=== PATIENT | male | born 1950 | race Caucasian/White ===

== ENCOUNTER → 2019-11-27 | Outpatient (CLI) | payer MEDICARE ==
--- NOTE | 2019-11-27 09:47 | Diagnostic Imaging Report ---
INDICATION: Left shoulder pain for 4 months. TIME OF EXAMINATION: 8:50 AM. TECHNIQUE: Multiple views of the left shoulder were obtained. FINDINGS: The glenohumeral and acromioclavicular alignment is normal. The acromiohumeral space is normal. No fracture or dislocation is seen. IMPRESSION: No acute bony abnormality is detected. Dictated by: Dictated on workstation # [id number]
== END ==
LOC: RAD FS 08:41
PROVIDERS: ATTEND Nurse Practitioner
DX: M25.512 Pain in left shoulder (principal)
CPT/HCPCS: 73030

== ENCOUNTER → 2019-12-06 | Outpatient (CLI) | payer MEDICARE ==
--- NOTE | 2019-12-06 09:29 | Diagnostic Imaging Report ---
EXAMINATION: Magnetic resonance imaging of the left shoulder without contrast. DATE: December 06, 2019. COMPARISON: Left shoulder radiographs November 27, 2019. HISTORY: 69-year-old male, left shoulder pain and difficulties with range of motion. TECHNIQUE: Magnetic Resonance Imaging sequences were performed of the shoulder without contrast. 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 This is seen on series 3 image 4. ROTATOR CUFF, LIGAMENTS, TENDONS, AND MUSCLES: There is supraspinatus tendinopathy fairly focally located within the posterior aspect of the tendon. The infraspinatus and teres minor tendons are intact. The subscapularis tendon is intact. There is normal rotator cuff muscle bulk and signal. LONG HEAD OF BICEPS: The biceps labral attachment and long head of the biceps tendon is intact. The long head of the biceps tendon is normally positioned within the bicipital groove. GLENOHUMERAL JOINT: The humeral head is well positioned relative to the glenoid. The labrum is grossly intact. There is no identified paralabral cyst. The articular cartilage is grossly intact. There is no joint effusion. ACROMIOCLAVICULAR JOINT: The acromioclavicular joint is normally aligned. The coracoclavicular and coracoacromial ligaments are intact. There are very mild acromioclavicular degenerative changes without undersurface osteophyte. BONE: The bones all have normal configuration. The bone marrow signal is within normal limits. Specifically, negative for fracture, osteomyelitis, osteonecrosis, or marrow replacing process. BURSAE AND SOFT TISSUES: The bursae and soft tissue surrounding the shoulder are unremarkable. IMPRESSION: 1. Supraspinatus tendinopathy. Negative for full-thickness rotator cuff tendon tear. 2. Very mild acromioclavicular degenerative changes without undersurface osteophyte. 3. Grossly intact labrum and unremarkable additional glenohumeral joint assessment. 4. No acute fracture, bone contusion, or evidence of osteonecrosis. 5. Potential 2.0 x 1.3 cm left upper lobe pulmonary nodule which does raise concern for possibility of malignancy. Dedicated CT chest without intravenous contrast is recommended for further assessment. POTENTIAL CRITICAL INCIDENTAL FINDING Report was faxed to office of YADI Limon by emily at 9:30 am. Dictated by: Dictated on workstation # [id number]
== END ==
LOC: RAD 07:52
PROVIDERS: ATTEND Nurse Practitioner
DX: M75.122 Complete rotator cuff tear or rupture of left shoulder, not specified as traumatic (principal); M24.512 Contracture, left shoulder; R91.1 Solitary pulmonary nodule
CPT/HCPCS: 73221

== ENCOUNTER → 2019-12-13 | Outpatient (CLI) | payer MEDICARE ==
[~2019-12-13] MED LIST: CATHETER FLUSH 10 ML SYR IV PRN; HOLD METFORMIN - RECEIVED CONTRAST 20 ML VIAL IV SCH; IOHEXOL 350 MG/ML 100 ML (OMNIPAQUE 350) VIAL IV ONE; NS 100 ML (IVPB) BAG IV ONE
--- NOTE | 2019-12-13 10:27 | Diagnostic Imaging Report ---
PROCEDURE: CT chest with and without contrast. TECHNIQUE: Multiple contiguous axial images were obtained through the chest before and after administration of intravenous contrast. Auto Exposure Controls were utilized during the CT exam to meet ALARA standards for radiation dose reduction. INDICATION: Lung nodule. COMPARISON: No prior studies are available for comparison. FINDINGS: No axillary lymphadenopathy is detected. No mediastinal or hilar lymphadenopathy is detected. No pericardial or pleural fluid is identified. There is an irregular opacity in the left lung apex measuring 15 mm. Tiny subpleural nodule in the lateral aspect of the right middle lobe is noted measuring 4 mm. This is indeterminate. Upper abdomen is unremarkable. IMPRESSION: Spiculated irregular density in the left lung apex, concerning for lung malignancy. No definite thoracic lymphadenopathy is seen. Further evaluation with PET scan would be recommended to evaluate for hypermetabolism. Dictated by: Dictated on workstation # [id number]
== END ==
LOC: RAD FS 08:16
PROVIDERS: ATTEND Family Medicine
DX: R91.1 Solitary pulmonary nodule (principal)
CPT/HCPCS: 71270

== ENCOUNTER 2020-08-05 14:30 | Emergency (ER) | payer MEDICARE ==
[~2020-08-05] VITALS: Ht 177.8 cm; Wt 86.3 kg
--- NOTE | 2020-08-05 14:44 | ED Chest Pain ---
General Stated Complaint: CHEST/ARM PAIN History of Present Illness Date Seen by Provider: Aug 05, 2020 Time Seen by Provider: 14:38 Initial Comments 70 y male presents w episodic CP a few times today with mild exertion. Located center of chest w radiation to R shoulder. Lasted about 10 minutes each time and resolved w rest. Admits to several episodes over the previous 2-3 days as well. On arrival to the ER he has no CP. States in the past he has had a normal stress test, has no Hx of heart problems and has never seen a electrician master. PCP... Dr Cleary. Allergies and Home Medications Allergies Coded Allergies: prochlorperazine (Unverified Adverse Reaction, Unknown, 08/05/20) Home Medications Alprazolam 0.25 Mg Tablet, 0.25 MG PO BID PRN for ANXIETY, (Reported) Amlodipine Besylate 5 Mg Tablet, 5 MG PO DAILY, (Reported) Baclofen 10 Mg Tablet, 10 MG PO for PAIN-MODERATE (5-7), (Reported) Lovastatin 20 Mg Tablet, 20 MG PO DAILY, (Reported) Nitroglycerin 0.4 Mg Tab.subl, 0.4 MG SL UD PRN for CHEST PAIN Prescribed by: LISA ZAPATA on 08/05/20 1513 Patient Home Medication List Home Medication List Reviewed: Yes Review of Systems Review of Systems Constitutional: No dizziness, No fever, No malaise, No weakness Respiratory: Denies Cough, Denies Orthopnea; Shortness of Air (w episodes); Denies SOA at Rest Cardiovascular: See HPI, Chest Pain; Denies Edema, Denies Irregular Heart Rate, Denies Lightheadedness, Denies Palpitations, Denies Syncope Gastrointestinal: Denies Abdominal Pain, Denies Constipated, Denies Diarrhea, Denies Nausea, Denies Poor Appetite, Denies Vomiting Musculoskeletal: back pain (associated w CP episodes) Skin: No change in color, No rash Past Vljyris-Pqvlio-Hlqxiy Hx Past Med/Social Hx: Reviewed Nursing Past Med/Soc Hx Physical Exam Vital Signs Vital Signs - First Documented 08/05/20 14:30 Temp 36.1 Pulse 56 Resp 18 B/P (MAP) 180/79 (112) Pulse Ox 98 O2 Delivery Room Air Capillary Refill : Height, Weight, BMI Height: '" Weight: lbs. oz. kg; BMI Method: General Appearance: No Apparent Distress, WD/WN HEENT: PERRL/EOMI, Normal ENT Inspection Respiratory: Chest Non Tender, Lungs Clear, Normal Breath Sounds, No Accessory Muscle Use, No Respiratory Distress Cardiovascular: Regular Rate, Rhythm, No Edema, Normal Peripheral Pulses Gastrointestinal: Non Tender, Soft Extremity: Normal Capillary Refill, Normal Inspection, No Calf Tenderness Neurologic/Psychiatric: Alert, Oriented x3, No Motor/Sensory Deficits Progress/Results/Core Measures Results/Orders Lab Results Laboratory Tests Test 08/05/20 14:40 Range/Units White Blood Count 7.6 4.3-11.0 10^3/uL Red Blood Count 5.33 4.35-5.85 10^6/uL Hemoglobin 15.0 13.3-17.7 G/DL Hematocrit 43 40-54 % Mean Corpuscular Volume 81 80-99 FL Mean Corpuscular Hemoglobin 28 25-34 PG Mean Corpuscular Hemoglobin Concent 35 32-36 G/DL Red Cell Distribution Width 13.4 10.0-14.5 % Platelet Count 283 130-400 10^3/uL Mean Platelet Volume 9.9 7.4-10.4 FL Neutrophils (%) (Auto) 68 42-75 % Lymphocytes (%) (Auto) 17 12-44 % Monocytes (%) (Auto) 9 0-12 % Eosinophils (%) (Auto) 5 0-10 % Basophils (%) (Auto) 1 0-10 % Neutrophils # (Auto) 5.2 1.8-7.8 X 10^3 Lymphocytes # (Auto) 1.3 1.0-4.0 X 10^3 Monocytes # (Auto) 0.7 0.0-1.0 X 10^3 Eosinophils # (Auto) 0.4 H 0.0-0.3 10^3/uL Basophils # (Auto) 0.1 0.0-0.1 10^3/uL Sodium Level 140 135-145 MMOL/L Potassium Level 4.1 3.6-5.0 MMOL/L Chloride Level 103 98-107 MMOL/L Carbon Dioxide Level 24 21-32 MMOL/L Anion Gap 13 5-14 MMOL/L Blood Urea Nitrogen 23 H 7-18 MG/DL Creatinine 1.19 0.60-1.30 MG/DL Estimat Glomerular Filtration Rate 60 BUN/Creatinine Ratio 19 Glucose Level 123 H 70-105 MG/DL Calcium Level 9.6 8.5-10.1 MG/DL Corrected Calcium 8.5-10.1 MG/DL Total Bilirubin 0.2 0.1-1.0 MG/DL Aspartate Amino Transf (AST/SGOT) 20 5-34 U/L Alanine Aminotransferase (ALT/SGPT) 19 0-55 U/L Alkaline Phosphatase 123 40-136 U/L Troponin I < 0.30 <0.30 NG/ML Total Protein 7.0 6.4-8.2 GM/DL Albumin 4.6 H 3.2-4.5 GM/DL My Orders Orders - ROVENSTINELISA L DO Ed Iv/Invasive Line Start (08/05/20 14:38) Cbc With Automated Diff (08/05/20 14:38) Comprehensive Metabolic Panel (08/05/20 14:38) Troponin I Fs (08/05/20 14:38) Chest 1 View Ap/Pa Only (08/05/20 14:38) Ekg Tracing (08/05/20 14:38) Vital Signs/I&O 08/05/20 08/05/20 14:30 14:30 Temp 36.1 Pulse 56 Resp 18 B/P (MAP) 180/79 (112) Pulse Ox 98 O2 Delivery Room Air Room Air Progress Progress Note : Progress Note Patient episodes over the past several days concerning for angina. EKG without any acute changes and normal troponin as well as chest x-ray. Patient pain free the entire time in this ER. Advise follow-up cardiology, given numbers to call tomorrow. Also given prescription for nitroglycerin and advised take a baby aspirin daily. Instructed on use of nitroglycerin and call 911 for chest pain unrelieved with nitroglycerin. Patient agrees and understands. Initial ECG Impression Time: 14:32 Initial ECG Rate: 60 Initial ECG Rhythm: Normal Sinus Initial ECG Intervals: Normal Initial ECG Impression: Normal, Nonspecific Changes (minimal ST changes- II & III) Initial ECG Comparisson: No Previous ECG Available Diagnostic Imaging Comments INDICATION: Chest pain. TIME OF EXAM 03:05 p.m. COMPARISON: No prior studies are available for comparison. FINDINGS: The heart size is normal. The pulmonary vascularity is unremarkable. The lungs are clear. No infiltrate, effusion or pneumothorax is detected. IMPRESSION: No acute cardiopulmonary process is detected. Dictated on workstation # [id number] Dict: 08/05/20 1522 Trans: 08/05/20 1523 [facility] [id number] Interpreted by: BRENNAN AUGUST MD Electronically signed by: Departure Impression Primary Impression: Chest pain Qualified Codes: R07.9 - Chest pain, unspecified Disposition: HOME, SELF-CARE Condition: Stable Departure-Patient Inst. Referrals: FELISHA CLEARY MD (PCP/Family) Primary Care Physician Monet COTTO MD, BASHAR J MD Patient Instructions: Angina (DC) Add. Discharge Instructions: Call one of the cardiologists listed above tomorrow, to make a follow up appointment in 1 week. You are advised to take a BABY aspirin (81mg) daily unless told otherwise by yo primary doctor or electrician master. Scripts Nitroglycerin (Nitroglycerin) 0.4 Mg Tab.subl 0.4 MG SL UD PRN for CHEST PAIN, #20 TAB Prov: LISA ZAPATA DO 08/05/20 LISA ZAPATA DO Aug 05, 2020 14:44
[2020-08-05 14:53] LABS: WHITE BLOOD COUNT 7.6 10^3/uL (4.3-11.0)
[2020-08-05 14:54] LABS: BASOPHILS # (AUTO) 0.1 10^3/uL (0.0-0.1); BASOPHILS % (AUTO) 1 % (0-10); EOSINOPHILS # (AUTO) 0.4 10^3/uL (0.0-0.3); EOSINOPHILS % (AUTO) 5 % (0-10); HEMATOCRIT 43 % (40-54); LYMPHOCYTES # (AUTO) 1.3 X 10^3 (1.0-4.0); LYMPHOCYTES % (AUTO) 17 % (12-44); MEAN CORPUSCULAR HEMOGLOBIN 28 PG (25-34); MEAN CORPUSCULAR HGB CONC 35 G/DL (32-36); MEAN CORPUSCULAR VOLUME 81 FL (80-99); MEAN PLATELET VOLUME 9.9 FL (7.4-10.4); MONOCYTES # (AUTO) 0.7 X 10^3 (0.0-1.0); MONOCYTES % (AUTO) 9 % (0-12); NEUTROPHILS # (AUTO) 5.2 X 10^3 (1.8-7.8); NEUTROPHILS % (AUTO) 68 % (42-75); PLATELET COUNT 283 10^3/uL (130-400)
[2020-08-05] MEDS ORDERED: ALPR0.254 PO (15:11)
[2020-08-05] MEDS ORDERED: LOVA20TA2 PO (15:11)
[2020-08-05] MEDS ORDERED: TRAM50TA3 (15:11)
[2020-08-05] MEDS ORDERED: BACL10TA PO (15:11)
[2020-08-05] MEDS ORDERED: AMLO5TAB9 PO (15:11)
[2020-08-05] MEDS ORDERED: PROP20TA5 PO (15:11)
[2020-08-05 15:13] LABS: POTASSIUM 4.1 MMOL/L (3.6-5.0); SODIUM 140 MMOL/L (135-145)
[2020-08-05] MEDS ORDERED: NITR0.4T39 SL (15:13)
[2020-08-05 15:14] LABS: ALANINE AMINOTRANSFERASE 19 U/L (0-55); ALBUMIN 4.6 GM/DL (3.2-4.5); ALKALINE PHOSPHATASE 123 U/L (40-136); BILIRUBIN,TOTAL 0.2 MG/DL (0.1-1.0); BUN/CREATININE RATIO 19; CALCIUM 9.6 MG/DL (8.5-10.1); CARBON DIOXIDE 24 MMOL/L (21-32); CHLORIDE 103 MMOL/L (98-107); CREATININE SERUM 1.19 MG/DL (0.60-1.30); GFR ESTIMATED 60; GLUCOSE 123 MG/DL (70-105)
--- NOTE | 2020-08-05 15:24 | Diagnostic Imaging Report ---
INDICATION: Chest pain. TIME OF EXAM 03:05 p.m. COMPARISON: No prior studies are available for comparison. FINDINGS: The heart size is normal. The pulmonary vascularity is unremarkable. The lungs are clear. No infiltrate, effusion or pneumothorax is detected. IMPRESSION: No acute cardiopulmonary process is detected. Dictated by: Dictated on workstation # [id number]
[2020-08-05 15:40] VITALS: BP 125/67
--- NOTE | 2020-08-05 15:40 | NUR ---
Pt discharged to home after review of home instructions verbalized as understood. Instructed on Nitroglycerin SL tablet usage for prn. Pt was referred to call Dr Reina or Dr Marinelli for further follow up and cardiac evaluation. Phone numbers for cardiologists are on discharge instructions.
[2020-08-06] MEDS ORDERED: TICA90TA PO (10:24)
[2020-08-06] MEDS ORDERED: LISI-556 PO (10:24)
[2020-08-06] MEDS ORDERED: ATOR80TA76 PO (10:24)
[2020-08-06] MEDS ORDERED: ASPI-1238 PO (10:24)
== END 2020-08-05 15:40 | disposition home or self-care (01) ==
LOC: EDUNIT# 14:30 → ER FS 14:31
DX: R07.9 Chest pain, unspecified (principal); Z88.8 Allergy status to other drugs, medicaments and biological substances
CPT/HCPCS: 36415; 71045; 80053; 84484; 85025; 93005

== ENCOUNTER 2020-08-05 18:57 | Inpatient (IN) | payer MEDICARE ==
[~2020-08-05] VITALS: Ht 177.6 cm; Wt 85.4 kg
[2020-08-05] VITALS (7 sets, daily range): BP systolic 132–160; BP diastolic 80–89
[~2020-08-05 18:57] MED LIST changes: +ALPR0.254 PO; +AMLO5TAB9 PO; +BACL10TA PO; -CATHETER FLUSH 10 ML SYR IV PRN; -HOLD METFORMIN - RECEIVED CONTRAST 20 ML VIAL IV SCH; -IOHEXOL 350 MG/ML 100 ML (OMNIPAQUE 350) VIAL IV ONE; +LOVA20TA2 PO; +NITR0.4T39 SL; -NS 100 ML (IVPB) BAG IV ONE; +PROP20TA5 PO; +TRAM50TA3
--- NOTE | 2020-08-05 19:00 | NUR ---
Pt ambulatory to ED room 1
--- NOTE | 2020-08-05 19:01 | NUR ---
EKG given to Dr. España
[2020-08-05] MEDS ORDERED: ASPIRIN 81 MG CHEW (CHILDREN'S ASA) ONE (19:06)
[2020-08-05] MEDS ORDERED: TICAGRELOR 90 MG TABLET (BRILINTA) PO ONE ×3 (19:07→19:15)
[2020-08-05] MEDS ORDERED: HEParin 1000 UNIT/ML (10ML VIAL) FOR BOLUS ONE ×2 (19:07→19:38)
--- NOTE | 2020-08-05 19:08 | ED Chest Pain ---
General Stated Complaint: CHEST PAIN Source: patient Exam Limitations: no limitations History of Present Illness Date Seen by Provider: Aug 05, 2020 Time Seen by Provider: 19:03 Initial Comments Patient returns to the ER with chest pain. Seen myself and sent home this afternoon after having 3 days of chest pain intermittently and ruled out for acute coronary syndrome at that time. Patient filled his prescription for nitroglycerin, went home and took a walk to his shop and on the way back had worse chest pain than he had before. States that the pain took him to his knees, he ended up taking 2 nitroglycerin and the pain got better after about an hour. His pain began around 6 p.m. Pain located the center of his chest continued radiation to his right shoulder and arm. Still very stoic regarding his pain. Allergies and Home Medications Allergies Coded Allergies: prochlorperazine (Unverified Adverse Reaction, Unknown, 08/05/20) Home Medications Alprazolam 0.25 Mg Tablet, 0.25 MG PO BID PRN for ANXIETY, (Reported) Amlodipine Besylate 5 Mg Tablet, 5 MG PO DAILY, (Reported) Baclofen 10 Mg Tablet, 10 MG PO for PAIN-MODERATE (5-7), (Reported) Lovastatin 20 Mg Tablet, 20 MG PO DAILY, (Reported) Nitroglycerin 0.4 Mg Tab.subl, 0.4 MG SL UD PRN for CHEST PAIN Prescribed by: LISA ZAPATA on 08/05/20 1513 Patient Home Medication List Home Medication List Reviewed: Yes Review of Systems Review of Systems Constitutional: see HPI; No dizziness, No fever; malaise; No weakness Respiratory: Denies Cough, Denies Shortness of Air Cardiovascular: See HPI, Chest Pain; Denies Edema, Denies Palpitations, Denies Syncope Gastrointestinal: Denies Abdominal Pain, Denies Nausea, Denies Vomiting Musculoskeletal: back pain (upper back) Skin: No change in color, No lesions, No rash Past Gpivhxl-Xgrhsx-Umocrm Hx Past Med/Social Hx: Reviewed Nursing Past Med/Soc Hx Patient Social History Recent Foreign Travel: No Contact w/Someone Who Travel: No Recent Hopitalizations: No Immunizations Up To Date Tetanus Booster (TDap): Unknown Seasonal Allergies Seasonal Allergies: No Past Medical History Surgeries: Yes (Nucleoplasty L5-S1 2001, sq cell cancer L face, adenocarcinoma L upper lobe) Lobectomy, Orthopedic Respiratory: No Cardiac: Yes High Cholesterol, Hypertension Neurological: No Genitourinary: No Gastrointestinal: No Musculoskeletal: No Endocrine: No HEENT: No Cancer: No Psychosocial: Yes Anxiety Integumentary: No Blood Disorders: No Physical Exam Vital Signs Vital Signs - First Documented 08/05/20 08/05/20 19:03 19:12 Temp 36.4 Pulse 47 Resp 18 B/P (MAP) 124/80 (95) Pulse Ox 99 O2 Delivery Room Air Capillary Refill : Height, Weight, BMI Height: '" Weight: lbs. oz. kg; 27.00 BMI Method: General Appearance: No Apparent Distress, WD/WN Neck: Non Tender, Supple Respiratory: Chest Non Tender, Lungs Clear, Normal Breath Sounds Cardiovascular: Regular Rate, Rhythm, No Edema, No Gallop, No JVD Gastrointestinal: Non Tender, Soft Extremity: Normal Capillary Refill, Normal Inspection, Non Tender, No Calf Tenderness Neurologic/Psychiatric: Alert, Oriented x3, No Motor/Sensory Deficits Progress/Results/Core Measures Results/Orders My Orders Orders - LISA ZAPATA DO Aspirin Chewable Tablet (Baby Aspirin Ch (08/05/20 19:15) Ticagrelor Tablet (Brilinta Tablet) (08/05/20 19:15) Heparin (Bolus Per Protocol) (Heparin (B (08/05/20 19:15) Aspirin Chewable Tablet (Baby Aspirin Ch (08/05/20 19:06) Ticagrelor Tablet (Brilinta Tablet) (08/05/20 19:07) Heparin (Bolus Per Protocol) (Heparin (B (08/05/20 19:07) Ticagrelor Tablet (Brilinta Tablet) (08/05/20 19:10) Medications Given in ED Current Medications Medications Dose Ordered Sig/Batool Route Start Time Stop Time Status Last Admin Dose Admin Aspirin 324 mg ONCE ONCE PO 08/05/20 19:15 08/05/20 19:16 DC 08/05/20 19:12 324 MG Ticagrelor 180 mg ONCE ONCE PO 08/05/20 19:15 08/05/20 19:16 DC 08/05/20 19:12 180 MG Vital Signs/I&O 08/05/20 08/05/20 19:03 19:12 Temp 36.4 Pulse 47 Resp 18 B/P (MAP) 124/80 (95) Pulse Ox 99 O2 Delivery Room Air Room Air Initial ECG Impression Time: 19:00 Initial ECG Rate: 52 Initial ECG Rhythm: Normal Sinus Initial ECG Impression: Acute KS Initial ECG Comparisson: Changed (STEMI- II, III aVF) Departure Communication (Admissions) Time/Spoke to Admitting Phy: 19:[address] Reina re STEMI, advised to give ASA, Brilinta and Heparin as well as call clay processing labourer. EMS arrives @ 1917 and out the door by 192 Impression Primary Impression: STEMI (ST elevation myocardial infarction) Qualified Codes: I21.3 - ST elevation (STEMI) myocardial infarction of unspecified site Additional Impression: Chest pain Qualified Codes: I25.9 - Chronic ischemic heart disease, unspecified Disposition: ADMITTED INPATIENT Condition: Stable Admissions Decision to Admit Reason: Admit from ER (General) Decision to Admit/Date: Aug 05, 2020 Time/Decision to Admit Time: 19:10 Departure-Patient Inst. Referrals: FELISHA CLEARY MD (PCP/Family) Primary Care Physician LISA ZAPATA DO Aug 05, 2020 19:08
--- NOTE | 2020-08-05 19:08 | NUR ---
This RN spoke with records supervisor Genesis and requested phlebotomist lab assistant activation.
--- NOTE | 2020-08-05 19:09 | NUR ---
EMS called for STEMI transfer.
--- NOTE | 2020-08-05 19:14 | NUR ---
EMS present in ED for transfer to [place]
[2020-08-05] MEDS ORDERED: HEParin 1000 UNIT/ML (10ML VIAL) FOR BOLUS IV SCH (19:15)
[2020-08-05] MEDS ORDERED: ASPIRIN 81 MG CHEW (CHILDREN'S ASA) PO ONE (19:15)
--- NOTE | 2020-08-05 19:21 | NUR ---
EMS left out the door with pt for emergent transfer to director labor standards in [place]
--- NOTE | 2020-08-05 19:30 | NUR ---
This RN spoke with Pool in ICU and report given.
[2020-08-05] MEDS ORDERED: LIDOCAINE 1% INJ 20 ML 20 ML VIAL ONE (19:38)
[2020-08-05] MEDS ORDERED: HEParin (CATH LAB) 2,000 ML IV ONE (19:38)
[2020-08-05] MEDS ORDERED: NS IV 1000 ML 1,000 ML ONE (19:39)
[2020-08-05] MEDS ORDERED: fentaNYL INJECTION 100 MCG/2 ML AMP ONE (19:42)
[2020-08-05] MEDS ORDERED: MIDAZOLAM 5 MG/5 ML (VERSED) VIAL ONE (19:42)
[2020-08-05] MEDS ORDERED: NITRO DRIP 25000 MCG/D5W 250 ML IV ONE (19:42)
[2020-08-05] MEDS ORDERED: EPTIFIBATIDE BOLUS 20 ML IV ONE (20:15)
--- NOTE | 2020-08-05 20:35 | History & Physicial-Cardiolgy ---
HPI-Cardiology Cardiology Consultation: Date of Consultation 08/05/20 Date of Admission Attending Physician Admitting Physician Raghu Solis MD Consulting Physician Monet COTTO MD HPI: Time Seen by a Provider: 20:35 Chief Complaint: chest pain this is a 70-year-old gentleman with history of HTN. Negative history for DM and active smoking. pertinent family history is unremarkable. He has been having intermittent chest pain for 3 days. However presented with severe chest pain to the [place] ER. Pain got better with nitroglycerin. 45 minutes of continuous chest pain. No exacerbating or relieving factors. 10 out of 10. Not associated with other cardiac complaints. Chest pain improved significantly with IV morphine. Review of Systems-Cardiology Review of Systems Constitutional: As described under HPI; No As described under HPI, No no symptoms reported, No chills, No fever, No lightheadedness Eyes: No As described under HPI, No no symptoms reported, No blindness, No blurred vision, No contact lenses, No drainage, No decreased acuity, No foreign body sensation, No pain, No vision change Ears/Nose/Throat: No As described under HPI, No no symptoms reported, No chronic hearing loss, No ear discharge, No ear pain, No nasal drainage, No ulc erations Respiratory: No no symptoms reported; As described under HPI; No As described under HPI, No cough, No orthopnea, No shortness of breath, No SOB with excertion Cardiovascular: No no symptoms reported; As described under HPI; No As described under HPI; chest pain; No edema, No irregular heart rate, No lightheadedness, No palpitations Gastrointestinal: No no symptoms reported, No As described under HPI, No abdomen distended, No abdominal pain, No blood streaked bowels, No constipation, No diarrhea, No nausea, No vomiting, No stool coloration changes Genitourinary: No As described under HPI, No burning, No dysuria, No discharge, No frequency, No flank pain, No hematuria, No urgency Skin: No rash, No skin related problems, No ulcerations Psychiatric/Neurological: No anxiety, No depression, No seizure, No focal weakness, No syncope Hematologic: No bleeding abnormalities DSG-Kceqtt-Mgiagy Hx Patient Social History Alcohol Use: Denies Use Recreational Drug Use: No Smoking Status: Never a Smoker Recent Foreign Travel: No Recent Infectious Disease Expo: No Hospitalization with Isolation: Denies Immunizations Up To Date Tetanus Booster (TDap): Unknown Past Medical History PMH As described under Assessment. Allergies and Home Medications Allergies Coded Allergies: prochlorperazine (Unverified Adverse Reaction, Unknown, 08/05/20) Home Medications Alprazolam 0.25 Mg Tablet, 0.25 MG PO BID PRN for ANXIETY, (Reported) Amlodipine Besylate 5 Mg Tablet, 5 MG PO DAILY, (Reported) Baclofen 10 Mg Tablet, 10 MG PO for PAIN-MODERATE (5-7), (Reported) Lovastatin 20 Mg Tablet, 20 MG PO DAILY, (Reported) Nitroglycerin 0.4 Mg Tab.subl, 0.4 MG SL UD PRN for CHEST PAIN Prescribed by: LISA ZAPATA on 08/05/20 9720 Patient Home Medication List Home Medication List Reviewed: Yes Physical Exam-Cardiology Physical Exam Vital Signs/I&O 08/05/20 08/05/20 08/05/20 19:03 19:12 19:21 Temp 36.4 36.4 Pulse 47 75 Resp 18 16 B/P (MAP) 124/80 (95) 119/42 (95) Pulse Ox 99 99 O2 Delivery Room Air Room Air Capillary Refill : Less Than 3 Seconds Constitutional: appears stated age; No apparent distress; well-developed, well- nourished HEENT: PERRL; No discharge; hearing is well preserved, oral hygience is good; No ulceration, No xanthelasmas are seen Neck: No carotid bruit; carotid pulses are 2 + bilaterally Respiratory: chest is bilaterally symmetric, lungs clear to auscultation Cardiovascular: regular rate-rhythm, S1 and S2; No diastolic murmur, No systolic murmur Gastrointestinal: soft, audible bowel sounds; No spleenomegaly Rectal: deferred Extremities: normal range of motion, non-tender, normal inspection; No clubbing, No cyanosis; no lower extremity edema bilateral; No significant edema Neurologic/Psychiatric: no motor/sensory deficits, alert, normal mood/affect, oriented x 3, power is 5/5 both on sides Skin: normal color, warm/dry; No rash, No ulcerations Data Review Labs Laboratory Tests 08/05/20 19:10: Troponin I < 0.30 ECG Impression ECG Initial ECG Rhythm: Normal Sinus Initial ECG Impression: Acute AR A/P-Cardiology Assessment/Admission Diagnosis acute inferior STEMI, Hypertension Admission Status: Inpatient Order (span 2 midnights) Reason for Inpatient Admission: acute inferior STEMI Plan emergent coronary angiography and primary PCI is recommended. Aspirin bolus, Brilinta bolus, 5000 international units of heparin. Hypertension, we'll start lisinopril and beta kaylah. hyperlipidemia: check lipid profile, start high dose Lipitor. Clinical Quality Measures AMI/AHF: ASA po Prior to arrival: Monet Rodriguez MD Aug 05, 2020 20:35
--- NOTE | 2020-08-05 20:35 | Cardiac Procedure Note-CS/ASA ---
Pre-Procedure Note Pre-Op Procedure Note H&P Reviewed The H&P was reviewed, patient examined and no changes noted. Date H&P Reviewed: Aug 05, 2020 Time H&P Reviewed: 19:58 Conscious Sedation Pre-Proced Time 19:58 ASA Score 3 For ASA 3 and 4: Consider anesthesia and medical clearance. Also, for patients with a history of failed moderate sedation consider anesthesia. Airway Lungs Heart ASA score ASA 1: a normal healthy patient ASA 2: a patient with a mild systemic disease (mid diabetes, controlled hypertension, obesity ASA 3: a patient with a severe systemic disease that limits activity (angina, COPD, prior Myocardial infarction) ASA 4: a patient with an incapacitating disease that is a constant threat to life (CHF, renal failure) ASA 5: a moribund patient not expected to survive 24 hrs. (ruptured aneurysm) ASA 6: a declared brain- patient whose organs are being harvested. For emergent operations, add the letter E after the classification Mallampati Classification Grade 1 Sedation Plan Analgesia, Amnesia, Plan communicated to team members, Discussed options with patient/fam, Discussed risks with patient/fam The patient is an appropriate candidate to undergo the planned procedure, sedation, and anesthesia. The patient immediately re-assessed prior to indication. Monet COTTO MD Aug 05, 2020 20:34
--- NOTE | 2020-08-05 20:39 | Coronary Angiography & PCI ---
Coronary Angiography & PCI DATE OF PROCEDURE: 08/05/20 INDICATION: acute inferior STEMI. PREOPERATIVE DIAGNOSIS: acute inferior STEMI. POSTOPERATIVE DIAGNOSIS: primary PCI to proximal RCA with AYLIN. HISTORY: 70-year-old gentleman with acute inferior STEMI. Therefore, the patient was taken to the label machine operator emergently for coronary angiography. PROCEDURES PERFORMED: 1.Coronary angiography. 2.Left heart catheterization. 3.PCI to the proximal RCA with drug-eluting stent. COMPLICATIONS: None. SPECIMENS: None. ESTIMATED BLOOD LOSS: 10 mL ANESTHESIA: Conscious sedation ANTICOAGULATION: IV heparin CONTRAST: 94 mL. FLUOROSCOPY: 5.5 minutes. FLOUROSCOPY DOSE: 878 mgy. PROCEDURE DETAILS: The patient is a 70 male and was brought to the label machine operator after informed consent was taken. All the risks and complications were explained in detail; this included the risk of bleeding, vascular damage, stroke, DE and even . The patient was draped and prepped in the usual sterile fashion. Access was gained in the right femoral artery with a 5 Malagasy sheath. Right coronary angiography was done with JR4 guide catheter, left coronary angiography was done with a JL4 catheter, left heart catheterization was performed with a pigtail catheter. FINDINGS: 1.Left main: patent. 2.LAD: mild ostial disease. Stenosis severity 30-40 percent. Small caliber first diagonal artery has moderate ostial disease. 3.Left circumflex artery: luminal irregularities. 4.RCA: severe proximal RCA stenosis with haziness. Stenosis severity 95 percent. 5.Left heart catheterization: LV pressure 118/1 mmHg. LVEDP 15 Aortic pressure 123/63 mmHg. Normal LV function with no Wall motion abnormalities. No gradient across the aortic valve. RECOMMENDATIONS: primary PCI to proximal RCA is recommended. INTERVENTION DETAILS: JR4 guide catheter, whisper extra-support guidewire, IV heparin for antic oagulation. Patient received 8000 total units of heparin in the ER and in the Dancer Or Choreographer. ACT 300 seconds. Double bolus Integrilin given. The lesion was crossed with the whisper wire. The tip of the wire was placed in the distal RCA. Predilatation with a 2.0 x15 balloon at 8 leroy for 11 seconds. patient reached our hospital at around 7:58 p.m. First inflation done at 8:09 p.m. Door to balloon time 11 minutes. We used the same balloon for a second inflation at 10 leroy for 14 seconds. We then placed a Xience Elena 2.75 x 23 mm drug-eluting stent at 19 leroy for 28 seconds. postdilated with an NC Quantum 3.5 x 20 mm balloon. The distal aspect was postdilated at 12 leroy for 9 seconds. The mid and proximal aspect was postdilated at 16 leroy for 23 seconds. ni troglycerin 200 g IC given. Post-angiogram showed excellent results. no residual stenosis and ANAT-3 flow distally. minx closure to the RFA. Patient tolerated the procedure well and did not have any complication. The patient left the catheter lab with stable hemodynamics. CONCLUSIONS: 1.acute inferior STEMI, primary PCI to the proximal RCA with a drug-eluting stent. 2. Dual antiplatelet therapy for at least 1 year. Aggressive secondary prevention measures. 3. Echocardiogram. Agustina Reina MD, FACP, FACC, [facility] Interventional Cardiology Monet REINA MD Aug 05, 2020 20:39
[2020-08-05] MEDS ORDERED: NS IV 1000 ML 1,000 ML IV SCH (20:45)
[2020-08-05] MEDS ORDERED: PATIENT MAY USE OWN MEDS, ALL PO SCH (20:45)
[2020-08-05] MEDS ORDERED: ALPRAZolam 0.25 MG (XANAX) TAB ONE (21:45)
[2020-08-05] MEDS: NS IV 1000 ML 1,000 ML IV SCH (21:55)
[2020-08-05] MEDS: meTOprolol TARTRATE 50 MG (LOPRESSOR) TAB PO SCH (22:10)
[2020-08-05] MEDS: TICAGRELOR 90 MG TABLET (BRILINTA) PO SCH (22:10)
[2020-08-05] MEDS: ALPRAZolam 0.25 MG (XANAX) TAB PO SCH (23:20)
[2020-08-06] VITALS (8 sets, daily range): BP systolic 110–156; BP diastolic 60–89
[2020-08-06 04:02] LABS: BASOPHILS % (AUTO) 0 % (0-10); EOSINOPHILS # (AUTO) 0.2 10^3/uL (0.0-0.3); EOSINOPHILS % (AUTO) 2 % (0-10); HEMATOCRIT 42 % (40-54); HEMOGLOBIN 14.5 G/DL (13.3-17.7); LYMPHOCYTES # (AUTO) 0.9 X 10^3 (1.0-4.0); LYMPHOCYTES % (AUTO) 8 % (12-44); MEAN CORPUSCULAR HEMOGLOBIN 28 PG (25-34); MEAN CORPUSCULAR HGB CONC 34 G/DL (32-36); MEAN CORPUSCULAR VOLUME 81 FL (80-99); MEAN PLATELET VOLUME 10.1 FL (7.4-10.4); MONOCYTES # (AUTO) 1.3 X 10^3 (0.0-1.0); MONOCYTES % (AUTO) 12 % (0-12); NEUTROPHILS # (AUTO) 8.7 X 10^3 (1.8-7.8); NEUTROPHILS % (AUTO) 79 % (42-75); PLATELET COUNT 247 10^3/uL (130-400)
[2020-08-06 04:21] LABS: BUN/CREATININE RATIO 20; CALCIUM 9.2 MG/DL (8.5-10.1); CARBON DIOXIDE 24 MMOL/L (21-32); CHLORIDE 107 MMOL/L (98-107); CHOLESTEROL 184 MG/DL (< 200); CREATININE SERUM 0.96 MG/DL (0.60-1.30); GFR ESTIMATED > 60; GLUCOSE 115 MG/DL (70-105); HDL CHOLESTEROL 45 MG/DL (40-60); MAGNESIUM 2.2 MG/DL (1.6-2.4); PHOSPHORUS 2.4 MG/DL (2.3-4.7); POTASSIUM 3.9 MMOL/L (3.6-5.0); SODIUM 140 MMOL/L (135-145); TRIGLYCERIDES 336 MG/DL (<150); VLDL CHOLESTEROL 67 MG/DL (5-40)
--- NOTE | 2020-08-06 04:59 | Pulmonary Consultation ---
History of Present Illness History of Present Illness Date Seen by Provider: Aug 06, 2020 Time Seen by Provider: 04:45 Date of Admission History of Present Illness Francois Bonner is a 70 year old man seen today due to an inferior STEMI s/p cath 08/05. He had been having episodes of worsening angina for several days prior to 08/05, when he went to the ED. He describes having L sided chest pain shooting to his L arm, and feeling light headed. When seen today he does not have any CP, palpitations, light headedness, SOB, N/V. Denies have any pain or swelling at the insertion site from his cath. Allergies and Home Medications Allergies Coded Allergies: prochlorperazine (Unverified Adverse Reaction, Unknown, 08/05/20) Home Medications Alprazolam 0.25 Mg Tablet, 0.25 MG PO BID PRN for ANXIETY, (Reported) Amlodipine Besylate 5 Mg Tablet, 5 MG PO DAILY, (Reported) Aspirin 81 Mg Tablet.dr, 81 MG PO DAILY Prescribed by: MUSTAPHA FRANK on 08/06/20 1024 Atorvastatin Calcium 80 Mg Tablet, 80 MG PO HS Prescribed by: MUSTAPHA FRANK on 08/06/20 1024 Baclofen 10 Mg Tablet, 10 MG PO for PAIN-MODERATE (5-7), (Reported) Lisinopril 5 Mg Tablet, 5 MG PO DAILY@0900 Prescribed by: MUSTAPHA FRANK on 08/06/20 1024 Nitroglycerin 0.4 Mg Tab.subl, 0.4 MG SL UD PRN for CHEST PAIN Prescribed by: LISA ZAPATA on 08/05/20 1513 Ticagrelor 90 Mg Tablet, 90 MG PO BID Prescribed by: MUSTAPHA FRANK on 08/06/20 1024 Past Ueciido-Snxxuu-Fkkojt Hx Past Med/Social Hx: Reviewed Nursing Past Med/Soc Hx Patient Social History Alcohol Use: Denies Use Recreational Drug Use: No Smoking Status: Never a Smoker Recent Foreign Travel: No Contact w/Someone Who Travel: No Recent Infectious Disease Expo: No Recent Hopitalizations: No Physical Abuse: No Sexual Abuse: No Mistreated: No Fear: No Immunizations Up To Date Tetanus Booster (TDap): Unknown Date of Pneumonia Vaccine: Jul 29, 2015 Seasonal Allergies Seasonal Allergies: No Past Medical History Surgeries: Yes (Nucleoplasty L5-S1 2001, sq cell cancer L face, adenocarcinoma L upper lobe) Lobectomy, Orthopedic Respiratory: No Cardiac: Yes High Cholesterol, Hypertension Neurological: No Genitourinary: No Gastrointestinal: No Musculoskeletal: No Endocrine: No HEENT: No Cancer: No Psychosocial: Yes Anxiety Integumentary: No Blood Disorders: No Review of Systems Date Seen by Provider: Aug 06, 2020 Constitutional: No: Fever, Chills ENT: No: Nose congestion, Throat pain Respiratory: Shortness of breath (chronic); No: Cough Cardiovascular: No: Chest Pain, Palpitations, Edema, Lt Headedness Gastrointestinal: No: Nausea, Vomiting, Diarrhea, Constipation Genitourinary: No Dysuria; Frequency (attributes to IV fluid); No Retention Neurological: No: Weakness, Numbness Sepsis Event Evaluation Height, Weight, BMI Height: '" Weight: lbs. oz. kg; 27.00 BMI Method: Exam Exam Vital Signs Date Time Temp Pulse Resp B/P (MAP) Pulse Ox O2 Delivery O2 Flow Rate FiO2 08/06/20 04:10 Room Air 08/06/20 04:03 50 32 150/76 (100) 98 Room Air 08/06/20 03:00 51 11 110/60 (77) 95 Room Air 08/06/20 02:00 51 10 115/67 (83) 95 Room Air 08/06/20 01:00 61 08/06/20 01:00 61 9 133/70 (91) 96 Room Air 08/06/20 00:17 Room Air 08/06/20 00:00 64 9 128/68 (88) 97 Room Air 08/05/20 23:00 52 11 138/86 (103) 96 Room Air 08/05/20 22:17 Room Air 08/05/20 22:00 47 15 155/89 (111) 99 Room Air 08/05/20 21:45 55 14 160/81 (107) 100 Room Air 08/05/20 21:30 45 11 155/81 (105) 96 Room Air 08/05/20 21:15 51 15 138/84 (102) 97 Room Air 08/05/20 21:10 36.0 53 12 141/86 (104) 96 Room Air 08/05/20 21:00 50 7 97 Room Air 08/05/20 20:55 50 10 132/80 (97) 97 Room Air 08/05/20 20:55 50 08/05/20 19:21 36.4 75 16 119/42 (95) 99 08/05/20 19:12 36.4 47 18 124/80 (95) 99 Room Air 08/05/20 19:03 Room Air l I & O 08/06/20 07:00 Intake Total 1300 ml Output Total 1200 ml Balance 100 ml Height & Weight Height: '" Weight: lbs. oz. kg; 27.00 BMI Method: General Appearance: No Apparent Distress, WD/WN Neck: Normal Inspection, Non Tender, Supple Respiratory: Chest Non Tender, Lungs Clear, Normal Breath Sounds, No Accessory Muscle Use, No Respiratory Distress Cardiovascular: Regular Rate, Rhythm, No Edema, No JVD, No Murmur, Normal Peripheral Pulses Capillary Refill: Less Than 3 Seconds Peripheral Pulses: 2+ Dorsalis Pedis (R), 2+ Left Dors-Pedis (L), 2+ Radial Pulses (R), 2+ Radial Pulses (L) Extremity: Normal Capillary Refill, Normal Inspection, Non Tender, No Calf Tenderness, No Pedal Edema Neurologic/Psychiatric: Alert, Oriented x3, Normal Mood/Affect Skin: Normal Color, Warm/Dry Results Lab Laboratory Tests 08/06/20 03:13 Assessment/Plan Assessment/Plan Inferior STEMI s/p primary PCI to proximal RCA with AYLIN - Cardiology Dr. Reina consulted - continue to monitor cath site - starting lisinopril, metoprolol - continue DVT prophylaxis DONIS ROMAN MED STUDENT Aug 06, 2020 04:59
[2020-08-06] MEDS ORDERED: MAGNESIUM 1 GM/100 ML IVPB 100 ML IV SCH (06:00)
[2020-08-06] MEDS ORDERED: POTASSIUM CL 10MEQ/50ML IVPB 50 ML IV SCH (06:00)
[2020-08-06] MEDS ORDERED: KCL 20 MEQ TAB (K-DUR) PO SCH (06:00)
[2020-08-06] MEDS: NS IV 1000 ML 1,000 ML IV SCH (06:23)
[2020-08-06] MEDS ORDERED: lisINopril 5 MG (PRINIVIL) TABLET PO SCH (09:00)
[2020-08-06] MEDS ORDERED: ASPIRIN E.C. 81 MG (ECOTRIN) TAB PO SCH (09:00)
[2020-08-06] MEDS ORDERED: lisINopril 40 MG (PRINIVIL) TABLET PO SCH (09:00)
[2020-08-06] MEDS: ALPRAZolam 0.25 MG (XANAX) TAB PO SCH (09:50)
[2020-08-06] MEDS: TICAGRELOR 90 MG TABLET (BRILINTA) PO SCH (09:51)
[2020-08-06] MEDS: meTOprolol TARTRATE 50 MG (LOPRESSOR) TAB PO SCH (10:05)
[2020-08-06] MEDS ORDERED: TICA90TA PO (10:24)
[2020-08-06] MEDS ORDERED: LISI-556 PO (10:24)
[2020-08-06] MEDS ORDERED: ATOR80TA76 PO (10:24)
[2020-08-06] MEDS ORDERED: ASPI-1238 PO (10:24)
--- NOTE | 2020-08-06 10:25 | Discharge Inst-Post CATH ---
Discharge Inst-CATH/EP Problems Reviewed?: Yes Post Cardiac Cath/EP D/C Inst Follow Up/Plan Appointment with Dr. Reina in 1-2 weeks <b>CARDIAC CATH/EP PROCEDURE DISCHARGE INSTRUCTIONS</b> ACTIVITY * Go Home directly and rest. * Limit activity of the leg (or wrist if it was used) for 7 days including aerobics, swimming, jogging, bicycling, etc. * Restrict stair-climbing for 7 days if possible, if not, climb up with your non-cath leg, then bring together on the same step. * Avoid lifting, pushing, pulling or excessive movement of the affected extremity for 7 days. * Customary sexual activity may be resumed after 2 days-use caution not to use a position that strains or causes pain to the affected extremity. * No driving for 24 hours. * NO SMOKING. * Avoid straining for bowel movements for 7 days. * Gentle walking on level ground is allowed. * Returning to work will depend on the type of procedure and the results. Your doctor will discuss this with you. CALL YOUR DOCTOR FOR ANY OF THE FOLLOWING: *If bleeding from the puncture site occurs- Apply gentle pressure to site with clean cloth and call your doctor or EMS. * If a knot or lump forms under the skin, increases in size, or causes pain. * If bruising appears to be worsening or moving further down your leg instead of disappearing. * Temperature above 101 F. CARE OF YOUR GROIN INCISION; * Bruising or purple discoloration of the skin near the puncture site is common. * You may shower only, no bathtub bathing for 5 days. Be careful to avoid slipping as your leg may feel stiff. * If a closure device was used on your femoral artery, please see the attached guide regarding care of the device and your leg. * Leave dressing on FOR 24 hours. CARE OF YOUR WRIST INCISION; * Bruising or purple discoloration of the skin near the puncture site is common. * You may shower. * DO NOT submerge wrist. * Leave dressing on FOR 24 hours. MUSTAPHA FRANK MD Aug 06, 2020 10:25
--- NOTE | 2020-08-06 10:29 | Cardiology Discharge Summary ---
Discharge Summary Hospital Course Problems Reviewed?: Yes Hospital Course Date of Admission: Aug 05, 2020 at 20:43 Admission Diagnosis : Family Physician/Provider: Raghu Solis MD Date of Discharge: 08/06/20 Discharge Diagnosis: [ Acute ST elevation myocardial infarction Coronary artery disease Hypertension Hyperlipidemia] Hospital Course: [70 years old gentleman admitted with acute ST elevation myocardial infarction for emergency cardiac catheterization which was carried out with Dr. Reina, had a stent to the right coronary artery with excellent results. Patient denied any active chest pain, no shortness of breath. No palpitation, noted to be bradycardic, metoprolol was held. He has been on propranolol as an outpatient. Groin is healing well. Asking to go home Planning to discharge and arrange for follow-up as an outpatient Patient was started on aspirin and Brilinta, educated on the importance of antiplatelet therapy Lovastatin was changed to Lipitor 80 mg daily Continue on Norvasc and propranolol and added lisinopril ] Labs and Pending Lab Test: Laboratory Tests 08/05/20 19:10: Troponin I < 0.30 08/05/20 21:18: Troponin I 0.520*H 08/06/20 03:13: White Blood Count 11.0, Red Blood Count 5.20, Hemoglobin 14.5, Hematocrit 42, Mean Corpuscular Volume 81, Mean Corpuscular Hemoglobin 28, Mean Corpuscular Hemoglobin Concent 34, Red Cell Distribution Width 13.8, Platelet Count 247, Mean Platelet Volume 10.1, Neutrophils (%) (Auto) 79H, Lymphocytes (%) (Auto) 8L , Monocytes (%) (Auto) 12, Eosinophils (%) (Auto) 2, Basophils (%) (Auto) 0, Neutrophils # (Auto) 8.7H, Lymphocytes # (Auto) 0.9L, Monocytes # (Auto) 1.3H, Eosinophils # (Auto) 0.2, Basophils # (Auto) 0.0, Sodium Level 140, Potassium Level 3.9, Chloride Level 107, Carbon Dioxide Level 24, Anion Gap 9, Blood Urea Nitrogen 19H, Creatinine 0.96, Estimat Glomerular Filtration Rate > 60, BUN/Creatinine Ratio 20, Glucose Level 115H, Calcium Level 9.2, Phosphorus Level 2.4, Magnesium Level 2.2, Triglycerides Level 336H, Cholesterol Level 184, LDL Cholesterol Direct 110, VLDL Cholesterol 67H, HDL Cholesterol 45 Home Meds Active Aspirin EC (Aspirin) 81 Mg Tablet.dr 81 Mg PO DAILY Lisinopril 5 Mg Tablet 5 Mg PO DAILY@0900 Atorvastatin Calcium 80 Mg Tablet 80 Mg PO HS Brilinta (Ticagrelor) 90 Mg Tablet 90 Mg PO BID Nitroglycerin 0.4 Mg Tab.subl 0.4 Mg SL UD PRN Reported Lovastatin 20 Mg Tablet 20 Mg PO DAILY Propranolol HCl 20 Mg Tablet 20 Mg PO Tramadol HCl 50 Mg Tablet Baclofen 10 Mg Tablet 10 Mg PO PRN Amlodipine Besylate 5 Mg Tablet 5 Mg PO DAILY Alprazolam 0.25 Mg Tablet 0.25 Mg PO BID PRN Assessment/Pt DC Instructions Prescriptions were provided Arrange for follow-up with Dr. Reina in one to 2 weeks Discharge Physical Examination Allergies: Coded Allergies: prochlorperazine (Unverified Adverse Reaction, Unknown, 08/05/20) General Appearance: No No Apparent Distress, No WD/WN, No Anxious, No Chronically ill, No Cachetic, No Mild Distress, No Moderate Distress, No Obese, No Severe Distress, No Thin, No Other HEENT: No PERRL/EOMI, No TMs Normal, No Normal ENT Inspection, No Pharynx Normal, No Moist Mucous Membranes, No Pale Conjunctivae (L), No Pale Conjun ctivae (R), No Pharyngeal Erythema, No Photophobia, No Scleral Icterus (L), No Scleral Icterus (R), No TM Abnormal (L), No TM Abnormal (R), No Tonsillar Exudate, No Tonsillar Enlargement, No Other Respiratory: No Chest Non Tender; Lungs Clear; No Normal Breath Sounds, No No Accessory Muscle Use, No No Respiratory Distress, No Accessory Muscle Use, No Crackles, No Decreased Breath Sounds, No Expiration, No Inspiration, No Pleural Rub, No Rales, No Respiratory Distress, No Rhonci, No Stridor, No Wheezing, No Other Cardiovascular: Regular Rate, Rhythm, No Edema, No Gallop, No JVD, No Murmur; No Normal Peripheral Pulses; Bradycardia; No Diastolic Murmur, No Systolic Murmur, No Extra Beats, No Friction Rub, No Gallop/S3, No Gallop/S4, No Irregularly Irregular, No JVD, No Tachycardia, No Other Gastrointestinal: Normal Bowel Sounds, No Organomegaly, No Pulsatile Mass Extremity: Normal Capillary Refill, Normal Inspection, Normal Range of Motion Skin: Normal Color, Warm/Dry Neurologic/Psychiatric: Alert, Oriented x3, No Motor/Sensory Deficits, Normal Mood/Affect Clinical Quality Measures Admission Status Admission Status: Observation AMI/AHF: ASA po Prior to arrival: No DVT/VTE Risk/Contraindication: Risk Factor Score Per Nursin RFS Level Per Nursing on Admit: 2=Moderate MUSTAPHA FRANK MD Aug 06, 2020 10:29
--- NOTE | 2020-08-06 11:20 | NUR ---
PATIENT DISCHARGED TO HOME. ALL PERSONAL BELONGINGS WITH PATIENT. AT BEDSIDE WHEN DISCHARGE INSTRUCTIONS GIVEN. ALL QUESTIONS ANSWERED WITH NO FURTHER QUESTIONS VOICED. FOLLOW UP APPOINTMENT PROVIDED. PT TAKEN VIA W/C TO PRIVATE VEHICLE WITH NO DIFFICULTIES.
== END 2020-08-06 11:20 | disposition home or self-care (01) | DRG 247 ==
LOC: EDUNIT# 18:57 → ER FS 18:58 → CATH 20:37 → ICU 20:43
PROVIDERS: ADMIT Internal Medicine Interventional Cardiology; ATTEND Internal Medicine Interventional Cardiology
PROC: 027034Z Dilation of Coronary Artery, One Artery with Drug-eluting Intraluminal Device, Percutaneous Approach (ICD-10-PCS; principal; 2020-08-05)
PROC: 4A023N7 Measurement of Cardiac Sampling and Pressure, Left Heart, Percutaneous Approach (ICD-10-PCS; 2020-08-05)
PROC: B2111ZZ Fluoroscopy of Multiple Coronary Arteries using Low Osmolar Contrast (ICD-10-PCS; 2020-08-05)
PROC: B2151ZZ Fluoroscopy of Left Heart using Low Osmolar Contrast (ICD-10-PCS; 2020-08-05)
DX: I21.19 ST elevation (STEMI) myocardial infarction involving other coronary artery of inferior wall (principal); I25.10 Atherosclerotic heart disease of native coronary artery without angina pectoris; I10 Essential (primary) hypertension; E78.00 Pure hypercholesterolemia, unspecified; E78.5 Hyperlipidemia, unspecified; F41.9 Anxiety disorder, unspecified; Z85.118 Personal history of other malignant neoplasm of bronchus and lung
CPT/HCPCS: 36415; 71045; 80048; 80061; 83735; 84100; 84484; 85025; 85347; 87081; 93005; 93306; 93458

== ENCOUNTER 2020-08-09 08:30 | Emergency (ER) | payer MEDICARE ==
[~2020-08-09] VITALS: Ht 177 cm; Wt 85.0 kg
[~2020-08-09 08:30] MED LIST changes: +ASPI-1238 PO; +ATOR80TA76 PO; +LISI-556 PO; +TICA90TA PO
[2020-08-09 08:38] VITALS: BP 153/59
--- NOTE | 2020-08-09 08:40 | ED Integumentary General ---
General Chief Complaint: Skin/Wound Problems Stated Complaint: LUMP IN GROIN NEAR INCISION FROM 08/05 Source: patient Exam Limitations: no limitations History of Present Illness Date Seen by Provider: Aug 09, 2020 Time Seen by Provider: 08:38 Initial Comments 70-year-old male presents with complaint of swelling in his right groin area. History of present illness patient had a left heart catheterization 4 days ago and is otherwise follow-up any swelling in this area. Patient states that this morning it was significant swollen and after he was up for short while, the swelling went down and he was feeling better. On arrival swelling nearly resolved. Allergies and Home Medications Allergies Coded Allergies: prochlorperazine (Unverified Adverse Reaction, Unknown, 08/05/20) Home Medications Alprazolam 0.25 Mg Tablet, 0.25 MG PO BID PRN for ANXIETY, (Reported) Amlodipine Besylate 5 Mg Tablet, 5 MG PO DAILY, (Reported) Aspirin 81 Mg Tablet.dr, 81 MG PO DAILY Prescribed by: MUSTAPHA FRANK on 08/06/20 1024 Atorvastatin Calcium 80 Mg Tablet, 80 MG PO HS Prescribed by: MUSTAPHA FRANK on 08/06/20 1024 Baclofen 10 Mg Tablet, 10 MG PO for PAIN-MODERATE (5-7), (Reported) Lisinopril 5 Mg Tablet, 5 MG PO DAILY@0900 Prescribed by: MUSTAPHA FRANK on 08/06/20 1024 Nitroglycerin 0.4 Mg Tab.subl, 0.4 MG SL UD PRN for CHEST PAIN Prescribed by: LISA ZAPATA on 08/05/20 1513 Ticagrelor 90 Mg Tablet, 90 MG PO BID Prescribed by: MUSTAPHA FRANK on 08/06/20 1024 Patient Home Medication List Home Medication List Reviewed: Yes Review of Systems Review of Systems Constitutional: no symptoms reported; No dizziness, No fever, No malaise, No weakness Respiratory: No cough, No short of breath Cardiovascular: No chest pain, No edema, No palpitations Gastrointestinal: No abdominal pain, No nausea, No vomiting Musculoskeletal: No back pain, No joint pain; other (Right groin swelling, no pain. Resolved) Skin: No change in color, No lesions; lumps; No pruritus, No rash Past Romqnbk-Uffybj-Txyonn Hx Past Med/Social Hx: Reviewed Nursing Past Med/Soc Hx Patient Social History Recent Hopitalizations: No Immunizations Up To Date Tetanus Booster (TDap): Unknown Date of Pneumonia Vaccine: Jul 29, 2015 Seasonal Allergies Seasonal Allergies: No Past Medical History Surgeries: Yes (Nucleoplasty L5-S1 2001, sq cell cancer L face, adenocarcinoma L upper lobe) Lobectomy, Orthopedic Respiratory: No Cardiac: Yes High Cholesterol, Hypertension Neurological: No Genitourinary: No Gastrointestinal: No Musculoskeletal: No Endocrine: No HEENT: No Cancer: No Psychosocial: Yes Anxiety Integumentary: No Blood Disorders: No Physical Exam Vital Signs Vital Signs - First Documented 08/09/20 08:38 Temp 36.0 Pulse 83 Resp 18 B/P (MAP) 153/59 (90) Pulse Ox 97 O2 Delivery Room Air Capillary Refill : General Appearance: WD/WN, no apparent distress Cardiovascular: regular rate, rhythm, no edema, no gallop Respiratory: chest non-tender, lungs clear Extremities: normal range of motion, non-tender, normal inspection, no calf tenderness, normal capillary refill, swelling (mild edema right inguinal without loculation or hematoma formation) Progress/Results/Core Measures Results/Orders My Orders Orders - LISA ZAPATA DO Ns Iv 500 Ml (Sodium Chloride 0.9%) (08/09/20 08:45) Vital Signs/I&O 08/09/20 08:38 Temp 36.0 Pulse 83 Resp 18 B/P (MAP) 153/59 (90) Pulse Ox 97 O2 Delivery Room Air Departure Impression Primary Impression: Hematoma Disposition: 01 HOME, SELF-CARE Condition: Stable Departure-Patient Inst. Decision time for Depature: 08:39 Referrals: FELISHA CLEARY MD (PCP/Family) Primary Care Physician Patient Instructions: HEMATOMA Add. Discharge Instructions: See your PCP as needed. Call the Event Mgr office for any other questions o r concerns related to your heart cath. All discharge instructions reviewed with patient and/or family. Voiced understanding. LISA ZAPATA DO Aug 09, 2020 08:40
[2020-08-09] MEDS ORDERED: NS IV 500 ML 500 ML IV SCH (08:45)
== END 2020-08-09 08:44 | disposition home or self-care (01) ==
LOC: EDUNIT# 08:30 → ER FS 08:32
DX: L76.32 Postprocedural hematoma of skin and subcutaneous tissue following other procedure (principal); I10 Essential (primary) hypertension; E78.00 Pure hypercholesterolemia, unspecified; F41.9 Anxiety disorder, unspecified; Z85.828 Personal history of other malignant neoplasm of skin; Z85.118 Personal history of other malignant neoplasm of bronchus and lung; Z88.8 Allergy status to other drugs, medicaments and biological substances; Z79.82 Long term (current) use of aspirin
CPT/HCPCS: 99282

== ENCOUNTER → 2021-02-12 | Outpatient (CLI) | payer MEDICARE ==
[~2021-02-12] MED LIST changes: +ALPR.25T PO; -ALPR0.254 PO; +AMLO-250 PO; -AMLO5TAB9 PO; -LISI-556 PO; +LISI-729 PO
== END ==
LOC: LAB FS 14:23
PROVIDERS: ATTEND Internal Medicine Cardiovascular Disease
DX: R00.1 Bradycardia, unspecified (principal)
CPT/HCPCS: 36415; 84443

== ENCOUNTER → 2021-02-24 | Outpatient (CLI) | payer MEDICARE | LOC: CARD 08:29 | PROVIDERS: ATTEND Internal Medicine Cardiovascular Disease | DX: R00.1 Bradycardia, unspecified (principal); R06.09 Other forms of dyspnea; R53.81 Other malaise | CPT/HCPCS: 93225; 93226; 93306 ==

== ENCOUNTER → 2021-03-13 | Outpatient (CLI) | payer MEDICARE ==
[~2021-03-13] VITALS: Ht 177 cm; Wt 82.0 kg
[~2021-03-13] MED LIST changes: +CATHETER FLUSH 10 ML SYR IV PRN; +REGADENOSON 0.4 MG/5 ML SYR (LEXISCAN) IV ONE
[2021-03-13 09:00] VITALS: BP 167/87
--- NOTE | 2021-03-16 15:11 | STRESS TEST ---
DATE OF SERVICE: 03/13/2021 RESTING AND POST REGADENOSON TECHNETIUM-99M TETROFOSMIN SPECT CT IMAGING ORDERING PHYSICIAN: Dr. Gillespie. PRIMARY PHYSICIAN: Dr. Solis. CLINICAL DIAGNOSIS: Malaise, shortness of breath, bradycardia. Baseline images were carried out after injection of 10.71 mCi of technetium-99m Tetrofosmin. This was followed by 0.4 mg regadenoson and 27.8 mCi of technetium-99m Tetrofosmin for stress imaging. The electrocardiogram showed sinus rhythm at baseline and did not change significantly with regadenoson infusion. The patient tolerated the procedure well. Review of images at rest and following stress indicates somewhat diminished count uptake in the inferior wall, which appears to be due to diaphragmatic attenuation. There is seen both at rest and following regadenoson infusion. Gated images show normal global left ventricular systolic function, normal regional wall motion, including the inferior wall of the left ventricle. Left ventricular ejection fraction is calculated to be 69%. Left ventricular end-diastolic volume is 66 mL. TID is absent (1.07). CONCLUSIONS: 1. No evidence of any significant myocardial ischemia or infarction on study. 2. Normal regional wall motion. 3. Normal global left ventricular systolic function with a calculated ejection fraction of 69%. Job ID: [id number] DocumentID: [id number] Dictated Date: 03/16/2021 13:12:26 Hurl Shaker Date: 03/16/2021 15:10:27 Dictated By: CLEVELAND GILLESPIE MD, MA, FACP, FACC,
== END ==
LOC: CARD 08:15
PROVIDERS: ATTEND Internal Medicine Cardiovascular Disease
DX: R53.81 Other malaise (principal); R00.1 Bradycardia, unspecified; R06.09 Other forms of dyspnea
CPT/HCPCS: 78452; 93017; A9502

== ENCOUNTER 2021-07-31 17:58 | Emergency (ER) | payer MEDICARE ==
[~2021-07-31] VITALS: Ht 177.8 cm; Wt 87.9 kg
[~2021-07-31 17:58] MED LIST changes: -CATHETER FLUSH 10 ML SYR IV PRN; -REGADENOSON 0.4 MG/5 ML SYR (LEXISCAN) IV ONE
--- OUTSIDE RECORDS SUMMARY | 2021-07-31 18:04 | XMS REPORT | Clinical Summary ---
Author Author [facility] Organization [facility] Address Unknown Phone Unavailable Care Team Providers Care Assembly Associate Name Role Phone Raghu Solis MD PCP Source Comments Some departments are not documenting in the electronic medical record. If you d o not see the information that you expected, contact Release of Information in [facility] [employer] Information Management department at [phone] for further assistan ce in locating additional records.[facility] Allergies Comments Active Allergy Reactions Severity Noted Date Doxycycline HIVES High 02/05/2018 Lisinopril COUGH Low 03/10/2017 Rage Prednisone SEE COMMENTS Low 01/16/2020 Muscle Spasms Prochlorperazine SEE COMMENTS Low 01/16/2020 Edisylate Medications End Date Status Medication Sig Dispensed Refills Start Date Active ALPRAZolam (XANAX) 0.25 Take 0.25 mg 0 mg tablet by mouth 8 twice daily. Active amLODIPine (NORVASC) 5 mg Take 5 mg by 0 10/28 tablet mouth at 9 bedtime daily. Active baclofen (LIORESAL) 10 mg Take 1 tablet 0 11/29 tablet by mouth 0 daily as needed. Active cetirizine (ZYRTEC) 10 mg Take 10 mg by 0 tablet mouth at bedtime daily. Active lovastatin (MEVACOR) 20 Take 1 tablet 0 12/17/ mg tablet by mouth at 0 bedtime daily. Active acetaminophen (TYLENOL) Take two 0 500 mg tablet tablets by 0 mouth every 6 hours while awake. Max of 4,000 mg of acetaminophen in 24 hours. Active ibuprofen (ADVIL) 200 mg Take one 30 tablet 0 0 tablet tablet by 0 mouth every 6 hours as needed for Pain. Take with food. Active tamsulosin (FLOMAX) 0.4 Take one 14 capsule 0 mg capsule capsule by 0 mouth daily after breakfast. Do not crush, chew or open capsules. Take 30 minutes following the same meal each day. Active traMADoL (ULTRAM) 50 mg Take one 30 tablet 0 tablet tablet to two 0 tablets by mouth every 6 hours as needed. Active propranoloL (INDERAL) 20 every 24 0 mg tablet hours. Active nitroglycerin (NITROSTAT) DISSOLVE ONE 0 0.4 mg tablet TABLET UNDER 0 THE TONGUE EVERY 5 MINUTES NEEDED FOR CHEST PAIN. DO NOT EXCEED A TOTAL OF 3 DOSES IN 15 MINUTES Active atorvastatin (LIPITOR) 40 Take 40 mg by 0 mg tablet mouth daily. Active carvediloL (COREG) 3.125 Take 3.125 mg 0 mg tablet by mouth twice daily with meals. Take with food. Active lisinopriL (ZESTRIL) 5 mg Take 5 mg by 0 tablet mouth daily. Active clopiDOGrel (PLAVIX) 75 Take 75 mg by 0 mg tablet mouth daily. Active aspirin 81 mg chewable Chew 81 mg by 0 tablet mouth daily. Take with food. Active Problems Problem Noted Date Adenocarcinoma of left lung 03/31/2020 Cancer Staging: Pathologic stage from : Stage IA3 (pT1c, pN0, cM0) - Signed by Naida Kowalski APRN -GLORIA on 04/16/2020 Hypertension 01/30/2020 Arthritis 01/30/2020 Overview: Formatting of this note might be differ ent from the original. 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 Surgical History Surgery Date Site/Laterality Comments SKIN CANCER EXCISION face TONSILLECTOMY HX BACK SURGERY 11/28/2001 - Nucleoplasty 11/27/2002 BRONCHOSCOPY 01/30/2020 N/A Bronchoscopy Wi th Bronchial Alveolar Lavage - Flexible performed by Araceli Flynn MD at [facility] LOBECTOMY 03/31/2020 Left VIDEO ASSISTED THORACOSCOPY WITH LEFT UPPER LOBECTOMY performed by Josemanuel Flynn MD at [facility] CORONARY STENT PLACEMENT 07/29/2020 - 08/27/2020 Medical History Medical History Date Comments SCC (squamous cell carcinoma), face 01/13/2018 Radiculopathy affecting upper 02/18/2016 extremity Pure hypercholesterolemia 10/09/2008 Patellofemoral arthralgia of both 03/06/2014 knees Anxiety state 10/27/2009 Lung nodule 01/16/2020 Chest pain With anxiety Hypertension DDD (degenerative disc disease), 02/18/2016 T6, L 5-S1 (nucleoplasty) cervical Arthritis Generalized Family History * Patient is adopted Relation Name Status Comments Father Mother Social History Date Tobacco Use Types Packs/Day Years Used Never Smoker Smokeless Tobacco: Never Used Comments Alcohol Use Standard Drinks/Week Not Currently 0 (1 standard drink = 0.6 o z pure alcohol) Alcohol Habits Answer Date Recorded How often do you have a drink containing alcohol? Never 01/17/2020 How many drinks containing alcohol do you have on No t asked a typical day when you are drinking? How often do you have six or more drinks on one Not asked occasion? Comment: Not asked Sex Assigned at Date Recorded Male 03/31/2020 6:51 AM CDT Last Filed Vital Signs Reading Time Taken Comments Vital Sign 119/59 04/20/2021 10:53 AM CDT Blood Pressure 58 04/20/2021 10:53 AM CDT Pulse 36.6 C (97.9 F) 04/20/2021 10:53 AM CDT Temperature - - Respiratory Rate 99% 04/20/2021 10:53 AM CDT Oxygen Saturation - - Inhaled Oxygen Concentration 84.7 kg (186 lb 12.8 oz) 04/20/2021 10:53 AM CDT Weight 177.8 cm (5' 10") 04/20/2021 10:53 AM CDT Height 26.8 04/20/2021 10:53 AM CDT Body Mass Index Plan of Treatment Health Maintenance Due Date Last Done Comments MEDICARE ANNUAL WELLNESS 1950 VISIT DTAP/TDAP VACCINES (1 - 1967 Tdap) HEPATITIS C SCREENING 1967 PHYSICAL (COMPREHENSIVE) 1967 EXAM COLORECTAL CANCER 1999 SCREENING SHINGLES RECOMBINANT 1999 VACCINE (1 of 2) PNEUMONIA (PPSV23) 2014 VACCINE (1 of 1 - PPSV23) INFLUENZA VACCINE 08/28/2021 Goals Goal Patient Associated Recent Progress Patient-Stat Aut hor Goal Type Problems ed? 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 03/08/2020 3:08 PM Full Code 03/07/2020 6:40 PM Provider has discussed Code Status No, discussion no t w/Patient or Family? necessary based on Dx 02/02/2020 3:12 PM Full Code 01/30/2020 11:06 AM Provider has discussed Code Status Yes w/Patient or Family?
--- OUTSIDE RECORDS SUMMARY | 2021-07-31 18:04 | XMS REPORT | Clinical Summary ---
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
[2021-07-31] MEDS ORDERED: ACETAMINOPHEN 500 MG TAB (TYLENOL) PO ONE (18:30)
[2021-07-31] MEDS ORDERED: NITROGLYCERIN 2% OINT 1 GM UNIT DOSE PACKET TOP ONE (18:30)
[2021-07-31] MEDS ORDERED: amLODIPine 10 MG (NORVASC) TAB PO ONE (18:30)
--- NOTE | 2021-07-31 18:38 | ED Chest Pain ---
General Chief Complaint: Cardiac/General Problems Stated Complaint: HIGH BP Source: patient Exam Limitations: no limitations History of Present Illness Date Seen by Provider: Jul 31, 2021 Time Seen by Provider: 18:05 Initial Comments 71-year-old male with past medical history of CAD with stent, hypertension, and recent Covid infection last month coming in due to elevated blood pressure with some chest discomfort. He states he was stable on his blood pressure m edications until he had Covid last month. Now his blood pressure keeps inching up. Today it was in the 170s. His PCP recently increase his amlodipine from 5 mg to 10 mg. The patient had carvedilol sitting around the house that he used to be on that he took this morning as well. He can mostly because of the elevated blood pressure. He says he has very mild almost nonexistent chest pain, that he has to think about to feel this been ongoing when he feels like his blood pressure is high. He states this does not feel the same as when he had an [place]. It does not worsen with exertion. He has no prior history of blood clots. He has been taking all of his other medications as prescribed. Is otherwise denying any recent cough, shortness of breath, fever, nausea, vomiting, diarrhea, weakness, numbness, or any other concerns. Of note, the patient says he does have anxiety, and he takes Xanax for this. He says this mostly feels like his anxiety. Allergies and Home Medications Allergies Coded Allergies: prochlorperazine (Unverified Adverse Reaction, Unknown, 08/05/20) Patient Home Medication List Home Medication List Reviewed: Yes ALPRAZolam (Xanax Tablet) 0.25 Mg Tablet, 0.25 MG PO BID PRN for ANXIETY, (Reported) Entered as Reported by: JOE MARROQUIN on 08/05/201510 Amlodipine Besylate (Amlodipine Besylate) 5 Mg Tablet, 5 MG PO DAILY, (Reported) Entered as Reported by: JOE MARROQUIN on 08/05/20 151 Aspirin (Aspirin EC) 81 Mg Tablet., 81 MG PO DAILY Prescribed by: MUSTAPHA FRANK on 08/06/20 1024 Atorvastatin Calcium (Atorvastatin Calcium) 80 Mg Tablet, 80 MG PO HS Prescribed by: MUSTAPHA FRANK on 08/06/20 1024 Baclofen (Baclofen) 10 Mg Tablet, 10 MG PO for PAIN-MODERATE (5-7), (Reported) Entered as Reported by: JOE MARROQUIN on 08/05/20 1511 Lisinopril (Lisinopril) 5 Mg Tablet, 5 MG PO DAILY@0900 Prescribed by: MUSTAPHA FRANK on 08/06/20 1024 Nitroglycerin (Nitroglycerin) 0.4 Mg Tab.subl, 0.4 MG SL UD PRN for CHEST PAIN Prescribed by: LISA ZAPATA on 08/05/20 1513 Propranolol HCl (Propranolol HCl) 20 Mg Tablet, 20 MG PO, (Reported) Entered as Reported by: JOE MARROQUIN on 08/05/20 1511 Ticagrelor (Brilinta) 90 Mg Tablet, 90 MG PO BID Prescribed by: MUSTAPHA FRANK on 08/06/20 1024 Tramadol HCl (Tramadol HCl) 50 Mg Tablet, (Reported) Entered as Reported by: JOE MARROQUIN on 08/05/20 1511 Review of Systems Review of Systems Constitutional: No fever EENTM: No Blurred Vision Respiratory: Denies Cough, Denies Shortness of Air Cardiovascular: Chest Pain Gastrointestinal: Denies Abdominal Pain Genitourinary: Denies Frequency Musculoskeletal: No back pain Skin: No rash Psychiatric/Neurological: Anxiety; Denies Depressed Endocrine: No Symptoms Reported Hematologic/Lymphatic: No Symptoms Reported All Other Systems Reviewed Negative Unless Noted: Yes Past Ljakzqe-Rmbdqt-Lkvrhf Hx Patient Social History Tobacco Use?: No Immunizations Up To Date Tetanus Booster (TDap): Unknown Seasonal Allergies Seasonal Allergies: No Past Medical History Surgeries: Yes (Nucleoplasty L5-S1 2001, sq cell cancer L face, adenocarcinoma L upper lobe) Lobectomy, Orthopedic Respiratory: No Cardiac: Yes High Cholesterol, Hypertension Neurological: No Genitourinary: No Gastrointestinal: No Musculoskeletal: No Endocrine: No HEENT: No Cancer: No Psychosocial: Yes Anxiety Integumentary: No Blood Disorders: No Physical Exam Vital Signs Vital Signs - First Documented 07/31/21 18:05 Temp 36.5 Pulse 66 Resp 18 B/P (MAP) 161/93 (115) Pulse Ox 97 O2 Delivery Room Air Capillary Refill : Height, Weight, BMI Height: '" Weight: lbs. oz. kg; 26.17 BMI Method: General Appearance: No Apparent Distress, WD/WN HEENT: PERRL/EOMI, Normal ENT Inspection, Pharynx Normal Neck: Full Range of Motion, Normal Inspection, Non Tender, Supple Respiratory: Chest Non Tender, Lungs Clear, Normal Breath Sounds, No Accessory Muscle Use, No Respiratory Distress Cardiovascular: Regular Rate, Rhythm, No Edema, Normal Peripheral Pulses Gastrointestinal: Normal Bowel Sounds, No Organomegaly, No Pulsatile Mass, Non Tender, Soft Extremity: Normal Capillary Refill, Normal Inspection, Normal Range of Motion, Non Tender, No Calf Tenderness, No Pedal Edema Neurologic/Psychiatric: Alert, No Motor/Sensory Deficits, Normal Mood/Affect Skin: Normal Color, Warm/Dry Lymphatic: No Adenopathy Progress/Results/Core Measures Results/Orders Lab Results Laboratory Tests Test 07/31/21 18:36 07/31/21 20:40 Range/Units White Blood Count 5.6 4.3-11.0 10^3/uL Red Blood Count 5.34 4.30-5.52 10^6/uL Hemoglobin 15.3 13.3-17.7 g/dL Hematocrit 45 40-54 % Mean Corpuscular Volume 84 80-99 fL Mean Corpuscular Hemoglobin 29 25-34 pg Mean Corpuscular Hemoglobin Concent 34 32-36 g/dL Red Cell Distribution Width 13.2 10.0-14.5 % Platelet Count 243 130-400 10^3/uL Mean Platelet Volume 9.7 9.0-12.2 fL Immature Granulocyte % (Auto) 0 % Neutrophils (%) (Auto) 62 42-75 % Lymphocytes (%) (Auto) 23 12-44 % Monocytes (%) (Auto) 11 0-12 % Eosinophils (%) (Auto) 4 0-10 % Basophils (%) (Auto) 0 0-10 % Neutrophils # (Auto) 3.5 1.8-7.8 X 10^3 Lymphocytes # (Auto) 1.3 1.0-4.0 X 10^3 Monocytes # (Auto) 0.6 0.0-1.0 X 10^3 Eosinophils # (Auto) 0.2 0.0-0.3 10^3/uL Basophils # (Auto) 0.0 0.0-0.1 10^3/uL Immature Granulocyte # (Auto) 0.0 0.0-0.1 10^3/uL Sodium Level 139 135-145 MMOL/L Potassium Level 4.1 3.6-5.0 MMOL/L Chloride Level 105 98-107 MMOL/L Carbon Dioxide Level 24 21-32 MMOL/L Anion Gap 10 5-14 MMOL/L Blood Urea Nitrogen 24 H 7-18 MG/DL Creatinine 0.94 0.60-1.30 MG/DL Estimat Glomerular Filtration Rate 79 BUN/Creatinine Ratio 26 Glucose Level 114 H 70-105 MG/DL Calcium Level 9.7 8.5-10.1 MG/DL Corrected Calcium 8.5-10.1 MG/DL Total Bilirubin 0.3 0.1-1.0 MG/DL Aspartate Amino Transf (AST/SGOT) 21 5-34 U/L Alanine Aminotransferase (ALT/SGPT) 26 0-55 U/L Alkaline Phosphatase 128 40-136 U/L Troponin I 0.30 0.30 <0.30 NG/ML Total Protein 7.8 6.4-8.2 GM/DL Albumin 4.9 H 3.2-4.5 GM/DL My Orders Orders - BROWN LEONARDO MD Cbc With Automated Diff (07/31/21 18:30) Chest 1 View Ap/Pa Only (07/31/21 18:30) Ekg Tracing (07/31/21 18:30) Comprehensive Metabolic Panel (07/31/21 18:30) O2 (07/31/21 18:30) Monitor-Rhythm Ecg Trace Only (07/31/21 18:30) Ed Iv/Invasive Line Start (07/31/21 18:30) Amlodipine Tablet (Norvasc Tablet) (07/31/21 18:30) Nitroglycerin Ointment (Nitrobid Ointme (07/31/21 18:30) Acetaminophen Tablet (Tylenol Tablet) (07/31/21 18:30) Troponin I Fs (07/31/21 18:36) Aspirin Chewable Tablet (Baby Aspirin Ch (07/31/21 19:45) Troponin I Fs (07/31/21 20:30) Medications Given in ED Vital Signs/I&O 07/31/21 07/31/21 18:05 21:46 Temp 36.5 36.6 Pulse 66 64 Resp 18 20 B/P (MAP) 161/93 (115) 155/77 Pulse Ox 97 97 O2 Delivery Room Air Room Air Progress Progress Note : Progress Note 71-year-old male with above history coming in due to elevated blood pressure and a tinge of chest discomfort. ABCs were intact and vitals were stable on present ation. Specifically he is not tachycardic. He does have elevated blood pressure here. He is due for his nightly amlodipine which I will give him. I will also give him Nitropaste to assist with his blood pressure. He was given Tylenol for potential headache with the Nitropaste. EKG normal sinus with a rate of [address] or T wave changes that would be concerning for ischemia acutely. Basic labs including troponin and chest x-ray ordered as well. Troponin was negative x2. Chest x-ray without any acute findings. His pain improved with his blood pressure improved after his home medication. I believe he is stable for discharge with outpatient follow-up with his PCP within the next 72 hours. He was sent home with strict return precautions Initial ECG Impression Date: Jul 31, 2021 Initial ECG Impression Time: 18:19 Initial ECG Rate: 64 Initial ECG Rhythm: Normal Sinus Comment Neuro QRS, normal axis, no significant ST depression or elevation, no T wave abnormalities, I reviewed the patient's prior EKG and it appears the same Diagnostic Imaging Diagonstic Imaging: Xray Plain Films/CT/US/NM/MRI: chest Comments [facility]. [place], [place] NAME: HÉCTOR SMITH [facility] REC#: [id number] PT STATUS: REG ER : 1950 PHYSICIAN: BROWN LEONARDO MD ADMIT DATE: 07/31/21/ER FS Draft Date of Exam:07/31/21 CHEST 1 VIEW AP/PA ONLY INDICATION: Hypertension EXAMINATION: Chest 07/31/2021 COMPARISON: 08/06/2020 FINDINGS: The lungs are hyperinflated. There is no pneumothorax. Heart and pulmonary vasculature normal. There are no infiltrates or effusions. No acute osseous abnormality. IMPRESSION: 1. Findings consistent with COPD. Dictated on workstation # [id number] Dict: 07/31/21 1846 Trans: 07/31/21 1850 GREGOR [id number] Interpreted by: PIPPA BELL MD Electronically signed by: Departure Impression Primary Impression: Hypertension Qualified Codes: I10 - Essential (primary) hypertension Additional Impression: Chest pain Qualified Codes: R07.9 - Chest pain, unspecified Disposition: 01 HOME, SELF-CARE Condition: Stable Departure-Patient Inst. Decision time for Depature: 21:32 Referrals: FELISHA CLEARY MD (PCP/Family) Primary Care Physician Patient Instructions: Chest Pain, High Blood Pressure in Adults Add. Discharge Instructions: You were seen in the emergency department due to elevated blood pressure and chest discomfort. Please call your doctor on appointment for follow-up as soon as possible. If you have any concerns then please come back to the ER All discharge instructions reviewed with patient and/or family. Voiced understanding. BROWN LEONARDO MD Jul 31, 2021 18:37
[2021-07-31 18:45] LABS: BASOPHILS % (AUTO) 0 % (0-10); EOSINOPHILS # (AUTO) 0.2 10^3/uL (0.0-0.3); EOSINOPHILS % (AUTO) 4 % (0-10); HEMATOCRIT 45 % (40-54); HEMOGLOBIN 15.3 g/dL (13.3-17.7); LYMPHOCYTES # (AUTO) 1.3 X 10^3 (1.0-4.0); LYMPHOCYTES % (AUTO) 23 % (12-44); MEAN CORPUSCULAR HEMOGLOBIN 29 pg (25-34); MEAN CORPUSCULAR HGB CONC 34 g/dL (32-36); MEAN CORPUSCULAR VOLUME 84 fL (80-99); MEAN PLATELET VOLUME 9.7 fL (9.0-12.2); MONOCYTES # (AUTO) 0.6 X 10^3 (0.0-1.0); MONOCYTES % (AUTO) 11 % (0-12); NEUTROPHILS # (AUTO) 3.5 X 10^3 (1.8-7.8); NEUTROPHILS % (AUTO) 62 % (42-75); PLATELET COUNT 243 10^3/uL (130-400); WHITE BLOOD COUNT 5.6 10^3/uL (4.3-11.0)
--- NOTE | 2021-07-31 18:50 | Diagnostic Imaging Report ---
INDICATION: Hypertension EXAMINATION: Chest 07/31/2021 COMPARISON: 08/06/2020 FINDINGS: The lungs are hyperinflated. There is no pneumothorax. Heart and pulmonary vasculature normal. There are no infiltrates or effusions. No acute osseous abnormality. IMPRESSION: 1. Findings consistent with COPD. Dictated by: Dictated on workstation # [id number]
[2021-07-31 19:09] LABS: ALANINE AMINOTRANSFERASE 26 U/L (0-55); ALBUMIN 4.9 GM/DL (3.2-4.5); ALKALINE PHOSPHATASE 128 U/L (40-136); BILIRUBIN,TOTAL 0.3 MG/DL (0.1-1.0); BUN/CREATININE RATIO 26; CALCIUM 9.7 MG/DL (8.5-10.1); CARBON DIOXIDE 24 MMOL/L (21-32); CHLORIDE 105 MMOL/L (98-107); CREATININE SERUM 0.94 MG/DL (0.60-1.30); GFR ESTIMATED 79; GLUCOSE 114 MG/DL (70-105); POTASSIUM 4.1 MMOL/L (3.6-5.0); SODIUM 139 MMOL/L (135-145); TOTAL PROTEIN 7.8 GM/DL (6.4-8.2)
[2021-07-31] MEDS ORDERED: ASPIRIN 81 MG CHEW (CHILDREN'S ASA) PO ONE (19:45)
[2021-07-31 21:46] VITALS: BP 155/77
== END 2021-07-31 21:47 | disposition home or self-care (01) ==
LOC: EDUNIT# 17:58 → ER FS 18:01
DX: I10 Essential (primary) hypertension (principal); R07.9 Chest pain, unspecified; E78.00 Pure hypercholesterolemia, unspecified; F41.9 Anxiety disorder, unspecified; I25.10 Atherosclerotic heart disease of native coronary artery without angina pectoris; Z95.5 Presence of coronary angioplasty implant and graft; Z79.82 Long term (current) use of aspirin; Z79.899 Other long term (current) drug therapy
CPT/HCPCS: 36415; 71045; 80053; 84484; 85025; 93005; 93041

== ENCOUNTER → 2021-09-21 | Outpatient (CLI) | payer MEDICARE ==
[2021-09-21 16:01] LABS: CALCIUM 9.2 MG/DL (8.5-10.1); CREATININE SERUM 0.91 MG/DL (0.60-1.30); MAGNESIUM 2.3 MG/DL (1.6-2.4); POTASSIUM 3.9 MMOL/L (3.6-5.0)
== END ==
LOC: LAB FS 14:59
PROVIDERS: ATTEND Nurse Practitioner Family
DX: I10 Essential (primary) hypertension (principal); R06.09 Other forms of dyspnea
CPT/HCPCS: 36415; 80048; 83735; 83880

== ENCOUNTER → 2021-09-29 | Outpatient (CLI) | payer MEDICARE | LOC: CARD 10:21 | PROVIDERS: ATTEND Nurse Practitioner Family | DX: I51.7 Cardiomegaly (principal); I35.1 Nonrheumatic aortic (valve) insufficiency | CPT/HCPCS: 93306 ==

== ENCOUNTER 2021-11-16 16:54 | Emergency (ER) | payer MEDICARE ==
[~2021-11-16] VITALS: Ht 177 cm; Wt 95.0 kg
[~2021-11-16 16:54] MED LIST changes: -LISI-729 PO; +LISI5TAB20 PO
--- OUTSIDE RECORDS SUMMARY | 2021-11-16 17:00 | XMS REPORT | Encounter Summary ---
Author Author [facility] Organization [facility] Address Unknown Phone Unavailable Care Team Providers Care Safety Counselor Name Role Phone Raghu Solis MD PCP Reason for Referral * Radiology Services (Routine) - Authorized Diagnoses / Procedures Referred By Contact Referred To Conta ct Specialty Diagnoses Adenocarcinoma of left lung (HCC) Encounter for follow-up surveillance of lung cancer Procedures CT CHEST W CONTRAST Naida Kowalski APRN-NP [address] [address] [facility] [address] [place] [phone] Radiology Referral ID Status Reason Start Date Expiration Visits Vi sits Date Requested Authorized [id number] Authorized 04/20/2021 10/21/2022 1 1 Reason for Visit * Radiology Services (Routine) - Authorized Diagnoses / Procedures Referred By Contact Referred To Conta ct Specialty Diagnoses Adenocarcinoma of left lung (HCC) Encounter for follow-up surveillance of lung cancer Procedures CT CHEST W CONTRAST Naida Kowalski APRN-NP [address] [address] [facility] [address] [place] [phone] Radiology Referral ID Status Reason Start Date Expiration Visits Vi sits Date Requested Authorized [id number] Authorized 04/20/2021 10/21/2022 1 1 Encounter Details Care Team Description Date Type Department Naida Kowalski APRN-BUSINESS ADMINISTRATOR [address] [facility] [place] [address] 10/01/2021 Hospital Imaging, [facility] [address] [place] [address] Social History Date Tobacco Use Types Packs/Day [...] Date Recorded Male 03/31/2020 6:51 AM CDT Date Recorded COVID-19 Exposure Response 10/01/2021 9:38 AM CDT In the last month, have you been in contact with No / Unsure someone who was confirmed or suspected to have Coronavirus / COVID-19? documented as of this encounter Functional Status Date of Assessment Functional Status Response 04/20/2021 Does the patient have a hearing impairment: No 04/20/2021 Does the patient have a visual impairment: Yes 04/20/2021 Does the patient have impaired ambulation: No 04/20/2021 Does the patient have an activity of daily living No (ADL) impairment: 10/14/2020 Does the patient have an instrumental activity of No daily living (IADL) impairment: Date of Assessment Cognitive Status Response 04/20/2021 Does the patient have a cognitive impairment: No documented as of this encounter Medications at Time of Discharge Start Date End Date Medication Sig Dispensed Refills 04/02/2020 acetaminophen (TYLENOL) Take two 0 500 mg tablet tablets by mouth every 6 hours while awake. Max of 4,000 mg of acetaminophen in 24 hours. 11/02/2018 ALPRAZolam (XANAX) 0.25 Take 0.25 mg 0 mg tablet by mouth twice daily. 11/10/2019 amLODIPine (NORVASC) 5 mg Take 5 mg by 0 tablet mouth at bedtime daily. aspirin 81 mg chewable Chew 81 mg by 0 tablet mouth daily. Take with food. atorvastatin (LIPITOR) 40 Take 40 mg by 0 mg tablet mouth daily. 12/19/2019 baclofen (LIORESAL) 10 mg Take 1 tablet 0 tablet by mouth daily as needed. carvediloL (COREG) 3.125 Take 3.125 mg 0 mg tablet by mouth twice daily with meals. Take with food. cetirizine (ZYRTEC) 10 mg Take 10 mg by 0 tablet mouth at bedtime daily. clopiDOGrel (PLAVIX) 75 Take 75 mg by 0 mg tablet mouth daily. 04/02/2020 ibuprofen (ADVIL) 200 mg Take one 30 tablet 0 tablet tablet by mouth every 6 hours as needed for Pain. Take with food. lisinopriL (ZESTRIL) 5 mg Take 5 mg by 0 tablet mouth daily. 12/17/2019 lovastatin (MEVACOR) 20 Take 1 tablet 0 mg tablet by mouth at bedtime daily. 08/05/2020 nitroglycerin (NITROSTAT) DISSOLVE ONE 0 0.4 mg tablet TABLET UNDER THE TONGUE EVERY 5 MINUTES NEEDED FOR CHEST PAIN. DO NOT EXCEED A TOTAL OF 3 DOSES IN 15 MINUTES propranoloL (INDERAL) 20 every 24 0 mg tablet hours. 04/03/2020 tamsulosin (FLOMAX) 0.4 Take one 14 capsule 0 mg capsule capsule by mouth daily after breakfast. Do not crush, chew or open capsules. Take 30 minutes following the same meal each day. 04/02/2020 traMADoL (ULTRAM) 50 mg Take one 30 tablet 0 tablet tablet to two tablets by mouth every 6 hours as needed. documented as of this encounter Discharge Disposition Code Departure Means Destination Disposition Home Home or Self Care documented in this encounter Plan of Treatment Not on filedocumented as of this encounter Goals Goal Patient Associated Recent Progress Patient-Stat Aut hor Goal Type Problems ed? Remain independent Hospital No Bessie Valiente RN documented as of this encounter Procedures Comments Procedure Name Priority Date/Time Associated Diag nosis CT CHEST W CONTRAST Routine 10/01/2021 Adenocarci noma of left 10:18 AM CDT lung (HCC) Encounter for follow-up surveillance of lung cancer HC CREATININE, POC 10/01/2021 10:02 AM CDT documented in this encounter Results * CT CHEST W CONTRAST (10/01/2021 10:18 AM CDT) Modality Anatomical Region Laterality Nuclear Medicine Chest Specimen Impressions [facility] RESULTS - 10/01/2021 10:53 AM CDT Stable changes of left upper lobectomy with no evidence of recurrent neoplasm in the chest. Small lung nodules are stable since at least November 2019. Continued attention on follow-up imaging is recommended. Finalized by Esme Schmidt M.D. on 10/01/2021 10:53 AM. Dictated by sEme Schmidt M.D. on 10/01/2021 10:32 AM. Narrative [facility] RESULTS - 10/01/2021 10:[address] Chest Clinical Indication: Left upper lobe adenocarcinoma treated with fluoroscopic lobectomy 03/31/2020 Technique: Multiple contiguous axial CT images were obtained through the chest with IV contrast. Post processing coronal and sagittal reconstruction images were made from the axial images. Comparison: CT chest April 20, 2021 Findings: Axilla, Mediastinum and Mohini: No lymphadenopathy. Heart and Great Vessels: Normal heart size. No pericardial effusion. Mild coronary calcification. Normal caliber aorta. Lungs and Pleura: Stable changes of left upper lobectomy. No nodularity along the resection margin to suggest residual or recurrent tumor. Stable small nodules, the largest in the left lower lobe (series 4 image 70), unchanged since December 13, 2019. No new nodule or pleural effusion. Chest Wall and Osseous Structures: No destructive bone lesion. Visualized Upper Abdomen: Small probable left renal cyst. Procedure Note Esme Schmidt MD - 10/01/2021 CT Chest Clinical Indication: Left upper lobe adenocarcinoma treated with fluoroscopic lobectomy 03/31/2020 Technique: Multiple contiguous axial CT images were obtained through the chest with IV contrast. Post processing coronal and sagittal reconstruction images were made from the axial images. Comparison: CT chest April 20, 2021 Findings: Axilla, Mediastinum and Mohini: No lymphadenopathy. Heart and Great Vessels: Normal heart size. No pericardial effusion. Mild coronary calcification. Normal caliber aorta. Lungs and Pleura: Stable changes of left upper lobectomy. No nodularity along the resection margin to suggest residual or recurrent tumor. Stable small nodules, the largest in the left lower lobe (series 4 image 70), unchanged since December 13, 2019. No new nodule or pleural effusion. Chest Wall and Osseous Structures: No destructive bone lesion. Visualized Upper Abdomen: Small probable left renal cyst. IMPRESSION Stable changes of left upper lobectomy with no evidence of recurrent neoplasm in the chest. Small lung nodules are stable since at least November 2019. Continued attention on follow-up imaging is recommended. Finalized by Esme Schmidt M.D. on 10/01/2021 10:53 AM. Dictated by Esme Schmidt M.D. on 10/01/2021 10:32 AM. Performing Organization Address City/State/ZIP Code P gamal Number [facility] * POC CREATININE, RAD (10/01/2021 10:02 AM CDT) Creatinine, POC 1.0 0.4 - 1.24 MG/DL [facility] Specimen Performing Organization Address City/State/ZIP Code P gamal Number [facility] [address] [place] [address] documented in this encounter Visit Diagnoses Diagnosis Adenocarcinoma of left lung (HCC) Encounter for follow-up surveillance of lung cancer Unspecified follow-up examination documented in this encounter Administered Medications Action Date Dose Rate Site Medication Order MAR Action 10/01/2021 10:19 AM CDT 70 mL iohexoL (OMNIPAQUE-350) 350 mg/mL Given injection 70 mL 70 mL, Intravenous, ONCE, 1 dose, On Th u 10/01/21 at 1030, NOTE: This is a HIGH ALERT Medication. 10/01/2021 10:19 AM CDT 50 mL sodium chloride PF 0.9% injection 50 mL Given 50 mL, Intravenous, ONCE, 1 dose, On Th u 10/01/21 at 1030, Intra-procedure (IR) documented in this encounter Additional Health Concerns Noted Time Assessment 04/20/2021 11:01 AM CDT A fall risk assessment has been complet ed for the patient 04/20/2021 11:01 AM CDT PHQ-2 Depression Total Score: 0 documented as of this encounter Care Teams Start Date End Date Safety Counselor Relationship Specialty 12/25/19 Raghu Solis MD PCP - General [address] [phone] documented as of this encounter
--- OUTSIDE RECORDS SUMMARY | 2021-11-16 17:00 | XMS REPORT | Encounter Summary ---
Author Author [facility] Organization [facility] Address Unknown Phone Unavailable Care Team Providers Care Blood Donor Unit Assistant Name Role Phone Raghu Solis MD PCP Encounter Details Care Team Description Date Type Department 10/01/2021 Travel Social History Date Tobacco Use Types Packs/Day [...] impairment: No documented as of this encounter Plan of Treatment Not on filedocumented as of this encounter Goals Goal Patient Associated Recent Progress Patient-Stat Aut hor Goal Type Problems ed? Remain independent Hospital No Potter, Bessie, RN documented as of this encounter Visit Diagnoses Not on filedocumented in this encounter Additional Health Concerns Noted Time Assessment 04/20/2021 11:01 AM CDT A fall risk assessment has been complet ed for the patient 04/20/2021 11:01 AM CDT PHQ-2 Depression Total Score: 0 documented as of this encounter Care Teams Start Date End Date Blood Donor Unit Assistant Relationship Specialty 12/25/19 Raghu Solis MD PCP - General [address] [phone] documented as of this encounter
--- OUTSIDE RECORDS SUMMARY | 2021-11-16 17:00 | XMS REPORT | Encounter Summary ---
Author Author [facility] Organization [facility] Address Unknown Phone Unavailable Care Team Providers Care Drone Pilot Name Role Phone Raghu Solis MD PCP Reason for Referral * Radiology Services (Routine) - New Request Diagnoses / Procedures Referred By Contact [facility] Adenocarcinoma of left lung (HCC) Encounter for follow-up surveillance of lung cancer Procedures CT CHEST WO CONTRAST Naida Kowalski APRN-NP [address] [address] Radiology Referral ID Status Reason Start Date Expiration Visits Vi sits Date Requested Authorized [id number] New Request 10/19/2021 04/18/2023 1 1 [facility] * Consult, Test & Treat (Routine) - Authorized Diagnoses / Procedures Referred By Contact [facility] Shortness of breath with exposure to COVID-19 virus Naida Kowalski APRN-NP [address] [address] [facility] [address] [address] Pulmonology Referral ID Status Reason Start Date Expiration Visits Vi sits Date Requested Authorized [id number] Authorized Specialty Services 10/19/2021 10/19/2022 1 1 Required Answer Question Post covid shortness of breath, history of lung cancer s/p resection Referral Shortness of breath What is the patient being referred for? shortness of breath post covid Specific Problem to be Addressed? [facility] Reason for Visit * Reason Comments Other Lung Cancer Screening Encounter Details Care Team Description Date Type Department Raghu Solis MD [address] [place] [address] Naida Kowalski, STEVIE 4000 [facility] [place] [address] Adenocarcinoma of left lung (HCC) (Prima ry Dx); Shortness of breath with exposure to COVID-19 virus; Encounter for follow-up surveillance of lung cancer 10/19/2021 Office Visit Cardiothoracic Surg yariel: Macey Shay [facility] [address] [address] [place] [phone] Social History Date Tobacco Use Types Packs/Day [...] AM CDT Date Recorded COVID-19 Exposure Response 10/19/2021 10:10 AM [facility] In the last month, have you been in contact with No / Unsure someone who was confirmed or suspected to have Coronavirus / COVID-19? documented as of this encounter Last Filed Vital Signs Reading Time Taken Comments Vital Sign - - Blood Pressure 68 10/19/2021 10:17 AM [facility] Pulse 36.3 C (97.4 F) 10/19/2021 10:17 AM [facility] Temperature 16 10/19/2021 10:17 AM [facility] Respiratory Rate 98% 10/19/2021 10:17 AM [facility] Oxygen Saturation - - Inhaled Oxygen Concentration 90.6 kg (199 lb 12.8 oz) 10/19/2021 10:17 AM [facility] Weight 177.8 cm (5' 10") 10/19/2021 10:17 AM [facility] Height 28.67 10/19/2021 10:17 AM [facility] Body Mass Index documented in this encounter Functional Status Date of Assessment Functional Status Response 10/19/2021 Does the patient have a hearing impairment: Yes 10/19/2021 Does the patient have a visual impairment: Yes 10/19/2021 Does the patient have impaired ambulation: No 10/19/2021 Does the patient have an activity of daily living No (ADL) impairment: 10/19/2021 Does the patient have an instrumental activity of No daily living (IADL) impairment: Date of Assessment Cognitive Status Response 10/19/2021 Does the patient have a cognitive impairment: No documented as of this encounter Progress Notes * Naida Kowalski, TOBIN-CREDENTIALS SPECIALIST - 10/19/2021 10:30 AM [facility] Date of Service: 10/19/2021 Subjective: Francois Bonner is a 71 y.o. male. History of Present Illness Kaveh Bonnerpresents to thoracic surgery clinic [id number] up C T scan ofhischestfor cancer surveillance.Mr. Bonner presented with a susp icious left upper lobe nodule-biopsy obtained that confirmed cancer.Gio cervantes a VIDEO ASSISTED THORACOSCOPY WITH LEFT UPPER LOBECTOMY (Left)on 03/31/20 under the direction of Dr. Josemanuel Flynn.Pathology impression adenoca rcinoma, acinar predominant.Pathologic Stage Classification (pTNM, AJCC 8th Edition): pT1cN0. 08/05/20heart attack sent to [facility] and astent to the right coronary art nimco foreman([place], [place]) at [facility] ([place]). [facility]'s [facility] associate media director withDr. Earl Reina. 04/20/21 CT chest 1. Prior left upper lobectomy with unchanged associated scarring. 2. Unchanged scattered pulmonary nodules measuring up to 0.4 cm, which have been present since the earliest available comparison of November 2019 and most likely represent granuloma/scars. Attention on follow-up CT is recommended, per clinical protocol. 3. No thoracic lymphadenopathy. He reports he had covid 19 infection 07/02/21 last 10 days, primarily with sinus congestion and pain, he also developed chest wall pain similar to the pain he neff d post surgery, shortness of breath that comes and goes, issues with BP. GP and associate media director working to adjust BP medications has been up to 150's SBP, started on diuretic had to stop due to decrease in urine production. He denies cough, h emoptysis, fevers, chills, night sweats, unintentional weight loss, new headache s, and bone pain. 10/01/21 CT chest Stable changes of left upper lobectomy with no evidence of recurrent neoplasm in the chest. Small lung nodules are stable since at least November 2019. Continued attention on follow-up imaging is recommended. Medical History: Diagnosis Date Anxiety state 10/27/2009 Arthritis Generalized Chest pain With anxiety DDD (degenerative disc disease), cervical 02/18/2016 T6, L5-S1 (nucleoplasty) Hypertension Lung nodule 01/16/2020 Patellofemoral arthralgia of both knees 03/06/2014 Pure hypercholesterolemia 10/09/2008 Radiculopathy affecting upper extremity 02/18/2016 SCC (squamous cell carcinoma), face 01/13/2018 Surgical History: Procedure Laterality Date HX BACK SURGERY 2002 Nucleoplasty Bronchoscopy With Bronchial Alveolar Lavage - Flexible N/A 01/30/2020 Performed by Josemanuel Flynn MD at [facility] VIDEO ASSISTED THORACOSCOPY WITH LEFT UPPER LOBECTOMY Left 03/31/2020 Performed by Josemanuel Flynn MD at 3 [facility] CORONARY STENT PLACEMENT 07/2020 SKIN CANCER EXCISION face TONSILLECTOMY Allergies Allergen Reactions Doxycycline HIVES Lisinopril COUGH Prednisone SEE COMMENTS Rage Prochlorperazine Edisylate SEE COMMENTS Muscle Spasms Social History Socioeconomic History Marital status: Spouse name: Not on file Number of children: Not on file Years of education: Not on file Highest education level: Not on file Occupational History Not on file Tobacco Use Smoking status: Never Smoker Smokeless tobacco: Never Used Substance and Sexual Activity Alcohol use: Not Currently Drug use: Never Sexual activity: Not on file Other Topics Concern Not on file Social History Narrative Not on file Family History Adopted: Yes ROS Review of Systems Constitutional: Negative. HENT: Negative. Eyes: Negative. Cardiovascular: Positive for chest pain and leg swelling. Respiratory: Positive for shortness of breath and wheezing. Endocrine: Negative. Hematologic/Lymphatic: Negative. Skin: Negative. Musculoskeletal: Negative. Gastrointestinal: Negative. Genitourinary: Negative. Neurological: Positive for light-headedness. Psychiatric/Behavioral: The patient is nervous/anxious. Allergic/Immunologic: Negative. Objective: acetaminophen (TYLENOL) 500 mg tablet Take two tablets by mouth every 6 hour s while awake. Max of 4,000 mg of acetaminophen in 24 hours. ALPRAZolam (XANAX) 0.25 mg tablet Take 0.25 mg by mouth twice daily. amLODIPine (NORVASC) 5 mg tablet Take 5 mg by mouth at bedtime daily. aspirin 81 mg chewable tablet Chew 81 mg by mouth daily. Take with food. atorvastatin (LIPITOR) 40 mg tablet Take 40 mg by mouth daily. baclofen (LIORESAL) 10 mg tablet Take 1 tablet by mouth daily as needed. carvediloL (COREG) 3.125 mg tablet Take 3.125 mg by mouth twice daily with m eals. Take with food. cetirizine (ZYRTEC) 10 mg tablet Take 10 mg by mouth at bedtime daily. clopiDOGrel (PLAVIX) 75 mg tablet Take 75 mg by mouth daily. doxazosin (CARDURA) 2 mg tablet every 12 hours. ibuprofen (ADVIL) 200 mg tablet Take one tablet by mouth every 6 hours as ne eded for Pain. Take with food. lisinopriL (ZESTRIL) 5 mg tablet Take 5 mg by mouth daily. lovastatin (MEVACOR) 20 mg tablet Take 1 tablet by mouth at bedtime daily. nitroglycerin (NITROSTAT) 0.4 mg tablet DISSOLVE ONE TABLET UNDER THE TONGUE EVERY 5 MINUTES NEEDED FOR CHEST PAIN. DO NOT EXCEED A TOTAL OF 3 DOSES IN 15 MINUTES propranoloL (INDERAL) 20 mg tablet every 24 hours. tamsulosin (FLOMAX) 0.4 mg capsule Take one capsule by mouth daily after dudley akfast. Do not crush, chew or open capsules. Take 30 minutes following the same meal each day. traMADoL (ULTRAM) 50 mg tablet Take one tablet to two tablets by mouth every 6 hours as needed. Vitals: 10/19/21 1017 Pulse: 68 Resp: 16 Temp: 36.3 C (97.4 F) TempSrc: Temporal SpO2: 98% Weight: 90.6 kg (199 lb 12.8 oz) Height: 1.778 m (5' 10") PainSc: Zero Body mass index is 28.67 kg/m. Physical Exam Constitutional: Appearance: Normal appearance. HENT: Head: Normocephalic. Cardiovascular: Rate and Rhythm: Normal rate and regular rhythm. Pulmonary: Effort: Pulmonary effort is normal. No respiratory distress. Breath sounds: No stridor. No wheezing, rhonchi or rales. Chest: Chest wall: No tenderness. Abdominal: General: Bowel sounds are normal. Palpations: Abdomen is soft. Skin: General: Skin is warm and dry. Neurological: General: No focal deficit present. Mental Status: He is alert. Psychiatric: Mood and Affect: Mood normal. Behavior: Behavior normal. Thought Content: Thought content normal. Judgment: Judgment normal. Assessment and Plan: 1. Adenocarcinoma of left lung (HCC) 2. Shortness of breath with exposure to COVID-19 virus 3. Encounter for follow-up surveillance of lung cancer Mr. Bonner presents to thoracic surgery clinic for lung cancer surveillance. H jerrell a VIDEO ASSISTED THORACOSCOPY WITH LEFT UPPER LOBECTOMY (Left)on 03/31/20under the direction of Dr. Josemanuel Flynn.Pathology impression adenocarcinoma, acinar predominant.Pathologic Stage Classification (pTNM, AJ CC 8th Edition): pT1cN0. CT imaging demonstrates no evidence of recurrent disea se. Pt having issues with shortness of breath s/p covid 19 infection. Referral placed to pulmonary medicine for evaluation. Pt has outside associate media director that ordered an echocardiogram results pending. [address] chest for lung cancer surveillance. NIKA Rider Thoracic Surgery Lung Cancer Screening Program C ST documented in this encounter Plan of Treatment Order Schedule Name Type Priority Associated Diag noses Expected: 04/18/2022 (Approximate), Expi res: 10/19/2022 CT CHEST WO CONTRAST Imaging Routine Adenocarc inoma of left lung (HCC) Encounter for follow-up surveillance of lung cancer Order Schedule Name Type Priority Associated Diag noses Ordered: 10/19/2021 AMB REFERRAL TO PULMONARY Outpatient Routine Shor tness of breath with Referral exposure to COVID-19 virus documented as of this encounter Goals Goal Patient Associated Recent Progress Patient-Stat Aut hor Goal Type Problems ed? Remain [facility] No Bessie Valiente RN documented as of this encounter Visit Diagnoses Diagnosis Adenocarcinoma of left lung (HCC) - Kacy forrester Shortness of breath with exposure to [place] VID-19 virus Encounter for follow-up surveillance of lung cancer Unspecified follow-up examination documented in this encounter Discontinued Medications Start Date End Date Medication Sig Discontinue Reason 10/19/2021 amLODIPine (NORVASC) 5 mg daily. Duplicate tablet Order documented as of this encounter Historical Medications * This list may reflect changes made after this encounter. Start Date End Date Medication Sig Dispensed Refills doxazosin (CARDURA) 2 mg every 12 0 tablet hours. 10/19/2021 amLODIPine (NORVASC) 5 mg daily. 0 tablet added in this encounter Additional Health Concerns Noted Time Assessment 10/19/2021 10:17 AM [facility] A fall risk assessment has been complet ed for the patient 04/20/2021 11:01 AM CDT PHQ-2 Depression Total Score: 0 documented as of this encounter Care Teams Start Date End Date Drone Pilot Relationship Specialty 12/25/19 Raghu Solis MD PCP - General Family [address] [place] [phone] documented as of this encounter
--- OUTSIDE RECORDS SUMMARY | 2021-11-16 17:00 | XMS REPORT | Encounter Summary ---
Author Author [facility] Organization [facility] Address Unknown Phone Unavailable Care Team Providers Care Bankruptcy Law Specialist Name Role Phone Raghu Solis MD PCP Encounter Details Care Team Description Date Type Department 10/19/2021 Travel Social History Date Tobacco Use Types [...] Recorded COVID-19 Exposure Response 10/19/2021 10:10 AM MOTOR GRADER OPERATOR In the last month, have you been [...] Concerns Noted Time Assessment 10/19/2021 10:17 AM MOTOR GRADER OPERATOR A fall risk assessment has been complet ed for the patient 04/20/2021 11:01 AM CDT PHQ-2 Depression Total Score: 0 documented as of this encounter Care Teams Start Date End Date Bankruptcy Law Specialist Relationship Specialty 12/25/19 Raghu Solis MD PCP - General [address] [phone] documented as of this encounter
--- OUTSIDE RECORDS SUMMARY | 2021-11-16 17:00 | XMS REPORT | Clinical Summary ---
Author Author [facility] Organization [facility] Address Unknown Phone Unavailable Care Team Providers Care Screed Person Name Role Phone Raghu Solis MD PCP Source Comments Some departments are not documenting in the electronic medical record. If you d o not see the information that you expected, contact Release of Information in [email or web address] Information Management department at [phone] for further assistan ce in locating additional records.[facility] Allergies Comments Active Allergy Reactions Severity Noted [...] tablet 0 mg tablet by mouth at 0 bedtime [...] tablet mouth daily. Take with food. Active doxazosin (CARDURA) 2 mg every 12 0 tablet hours. 10/19/2021 Discontinued (Duplicate Orde r) amLODIPine (NORVASC) 5 mg daily. 0 tablet Active Problems Problem Noted Date Adenocarcinoma of left lung 03/31/2020 Cancer Staging: Pathologic stage from : Stage IA3 (pT1c, pN0, cM0) - Signed by Naida Kowalski APRN -DIAMOND DIE DRILLER on 04/16/2020 Hypertension 01/30/2020 Arthritis 01/30/2020 Overview: Formatting of this note might be differ ent from the original. 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 Encounters Care Team Description Date Type Specialty Raghu Solis MD [place], Stephanie D, PRODUCTION CONTROL EXPEDITER-DIAMOND DIE DRILLER Adenocarcinoma of left lung (HCC) (Prima ry Dx); Shortness of breath with exposure to COVID-19 virus; Encounter for follow-up surveillance of lung cancer 10/19/2021 Office Visit Cardiothoracic Surg yariel 10/19/2021 Travel Naida Kowalski APRN-NP 10/01/2021 Hospital Radiology Encounter 10/01/2021 Travel from Last 3 Months Surgical History Surgery Date Site/Laterality Comments SKIN CANCER EXCISION face TONSILLECTOMY HX BACK SURGERY 11/28/2001 - Nucleoplasty 11/27/2002 BRONCHOSCOPY 01/30/2020 N/A Bronchoscopy Wi th Bronchial Alveolar Lavage - Flexible performed by Araceli Flynn MD at [facility] LO[facility]CTOMY 03/31/2020 Left VIDEO ASSISTED THORACOSCOPY WITH LEFT UPPER LOBECTOMY performed by Josemanuel Flynn MD at [facility] CORONARY STENT PLACEMENT 07/29/2020 - 08/27/2020 [...] Recorded COVID-19 Exposure Response 10/19/2021 10:10 AM FRENCH POLISHER In the last month, have you been in contact with No / Unsure someone who was confirmed or suspected to have Coronavirus / COVID-19? Last Filed Vital Signs Reading Time Taken Comments Vital Sign 119/59 04/20/2021 10:53 AM CDT Blood Pressure 68 10/19/2021 10:17 AM [employer]CH POLISHER Pulse 36.3 C (97.4 F) 10/19/2021 10:17 AM FR[employer]CH POLISHER Temperature 16 10/19/2021 10:17 AM FRENCH POLISHER Respiratory Rate 98% 10/19/2021 10:17 AM FRENCH POLISHER Oxygen Saturation - - Inhaled Oxygen Concentration 90.6 kg (199 lb 12.8 oz) 10/19/2021 10:17 AM FRENCH POLISHER Weight 177.8 cm (5' 10") 10/19/2021 10:17 AM FRENCH POLISHER Height 28.67 10/19/2021 10:17 AM FRENCH POLISHER Body Mass Index Plan of Treatment Health Maintenance Due Date Last Done Comments MEDICARE ANNUAL WELLNESS 1950 VISIT DTAP/TDAP VACCINES (1 - 1967 Tdap) HEPATITIS C SCREENING 1967 PHYSICAL (COMPREHENSIVE) 1967 EXAM COLORECTAL CANCER 1999 SCREENING SHINGLES RECOMBINANT 1999 VACCINE (1 of 2) PNEUMONIA (PPSV23) 2014 VACCINE (1 of 1 - PPSV23) INFLUENZA VACCINE Completed 08/17/2021, 08/17/2021, 09/03/2020 Goals Goal Patient Associated Recent Progress Patient-Stat Aut hor Goal Type Problems ed? Remain independent Hospital No Bessie Valiente RN Procedures Comments Procedure Name Priority Date/Time Associated Diag nosis CT CHEST W CONTRAST Routine 10/01/2021 Adenocarci noma of left 10:18 AM CDT lung (HCC) Encounter for follow-up surveillance of lung cancer HC CREATININE, POC 10/01/2021 10:02 AM CDT from Last 3 Months Results * CT CHEST W CONTRAST (10/01/2021 [...] Esme Schmidt M.D. on 10/01/2021 10:32 AM. Narrative [...] P gamal Number [facility] [address] [place] [address] from Last 3 Months Insurance Type Payer Benefit Subscriber ID Effective Phone Address Plan / Dates Group Medicare MEDICARE MEDICARE [id number] 2014-P [phone] [address] [place] [address] Medicare BCBS [place] BCBS [id number] 1988-P [phone] [address] [place] [address] [phone] Advance Directives Patient Operations Recruiter Explanation Type Date Recorded Advance 01/30/2020 8:06 [...] discussed Code Status Yes w/Patient or Family? Care Teams Start Date End Date Screed Person Relationship Specialty 12/25/19 Raghu Solis MD PCP - General Family [address] [place] [address] [place] [address]
--- NOTE | 2021-11-16 17:02 | ED Chest Pain ---
General Stated Complaint: CP,BLOOD PRESSURE FLUCTUATING Source: patient Exam Limitations: no limitations History of Present Illness Date Seen by Provider: Nov 16, 2021 Time Seen by Provider: 16:57 Initial Comments 71yoM with PMH of CAD with stenting, VAHE in June, previous lung cancer s/p partial lobectomy coming in for chest pain. Has been off and on for months. This most recent episode started back up on Tuesday. It is intermittent in nature and moderate. He came in today because he noticed his blood pressure was inching up to 170's systolic and normally is at 150's. Denies any SOB, abd pain, n/v/d, weakness, numbness, severe headache, vision change, urinary changes, or any other concerns. Allergies and Home Medications Allergies Coded Allergies: prochlorperazine (Unverified Adverse Reaction, Unknown, 08/05/20) Patient Home Medication List Home Medication List Reviewed: Yes ALPRAZolam (Xanax Tablet) 0.25 Mg Tablet, 0.25 MG PO BID PRN for ANXIETY, (Reported) Entered as Reported by: JOE MARROQUIN on 08/05/201510 Amlodipine Besylate (Amlodipine Besylate) 5 Mg Tablet, 5 MG PO DAILY, (Reported) Entered as Reported by: JOE MARROQUIN on 08/05/20 151 Aspirin (Aspirin EC) 81 Mg Tablet.dr, 81 MG PO DAILY Prescribed by: MUSTAPHA FRANK on 08/06/20 1024 Atorvastatin Calcium (Atorvastatin Calcium) 80 Mg Tablet, 80 MG PO HS Prescribed by: MUSTAPHA FRANK on 08/06/20 1024 Baclofen (Baclofen) 10 Mg Tablet, 10 MG PO for PAIN-MODERATE (5-7), (Reported) Entered as Reported by: JOE MARROQUIN on 08/05/20 151 Lisinopril (Lisinopril) 5 Mg Tablet, 5 MG PO DAILY@0900 Prescribed by: MUSTAPHA FRANK on 08/06/20 1024 Nitroglycerin (Nitroglycerin) 0.4 Mg Tab.subl, 0.4 MG SL UD PRN for CHEST PAIN Prescribed by: LISA ZAPATA on 08/05/20 151 Propranolol HCl (Propranolol HCl) 20 Mg Tablet, 20 MG PO, (Reported) Entered as Reported by: JOE MARROQUIN on 08/05/20 1511 Ticagrelor (Brilinta) 90 Mg Tablet, 90 MG PO BID Prescribed by: MUSTAPHA FRANK on 08/06/20 1024 Tramadol HCl (Tramadol HCl) 50 Mg Tablet, (Reported) Entered as Reported by: JOE MARROQUIN on 08/05/20 1511 Review of Systems Review of Systems Constitutional: No chills, No fever EENTM: No Blurred Vision Respiratory: Denies Cough, Denies Shortness of Air Cardiovascular: Chest Pain Gastrointestinal: Denies Abdominal Pain, Denies Diarrhea, Denies Nausea, Denies Vomiting Genitourinary: No Symptoms Reported Musculoskeletal: no symptoms reported Skin: no symptoms reported Psychiatric/Neurological: No Symptoms Reported Endocrine: No Symptoms Reported Hematologic/Lymphatic: No Symptoms Reported All Other Systems Reviewed Negative Unless Noted: Yes Past Obtnsnr-Jioeha-Mxcpzo Hx Patient Social History Substance use?: No Immunizations Up To Date Tetanus Booster (TDap): Unknown Seasonal Allergies Seasonal Allergies: No Past Medical History Surgery/Hospitalization HX: Hx of [place] with stent placement 07/2020, Hx of lung cancer with surgical intervention Surgeries: Yes (Nucleoplasty L5-S1 2001, sq cell cancer L face, adenocarcinoma L upper lobe) Lobectomy, Orthopedic Respiratory: No Cardiac: Yes High Cholesterol, Hypertension Neurological: No Genitourinary: No Gastrointestinal: No Musculoskeletal: No Endocrine: No HEENT: No Cancer: No Psychosocial: Yes Anxiety Integumentary: No Blood Disorders: No Physical Exam Vital Signs Vital Signs - First Documented 11/16/21 17:10 Temp 36.6 Pulse 71 Resp 16 B/P (MAP) 189/80 (116) O2 Delivery Room Air Capillary Refill : Height, Weight, BMI Height: '" Weight: lbs. oz. kg; 27.00 BMI Method: General Appearance: No Apparent Distress, WD/WN HEENT: PERRL/EOMI, TMs Normal, Pharynx Normal Neck: Full Range of Motion, Normal Inspection, Non Tender, Supple Respiratory: Chest Non Tender, Lungs Clear, Normal Breath Sounds, No Accessory Muscle Use, No Respiratory Distress Cardiovascular: Regular Rate, Rhythm, No Edema, Normal Peripheral Pulses Gastrointestinal: Normal Bowel Sounds, Non Tender, Soft; No Distended, No Guarding Extremity: Normal Capillary Refill, Normal Inspection, Normal Range of Motion, Non Tender, No Calf Tenderness, No Pedal Edema Neurologic/Psychiatric: Alert, No Motor/Sensory Deficits, Normal Mood/Affect Skin: Normal Color, Warm/Dry Lymphatic: No Adenopathy Progress/Results/Core Measures Results/Orders Lab Results Laboratory Tests Test 11/16/21 17:03 Range/Units White Blood Count 6.6 4.3-11.0 10^3/uL Red Blood Count 5.21 4.30-5.52 10^6/uL Hemoglobin 14.9 13.3-17.7 g/dL Hematocrit 45 40-54 % Mean Corpuscular Volume 86 80-99 fL Mean Corpuscular Hemoglobin 29 25-34 pg Mean Corpuscular Hemoglobin Concent 33 32-36 g/dL Red Cell Distribution Width 13.2 10.0-14.5 % Platelet Count 221 130-400 10^3/uL Mean Platelet Volume 10.0 9.0-12.2 fL Immature Granulocyte % (Auto) 0 % Neutrophils (%) (Auto) 69 42-75 % Lymphocytes (%) (Auto) 18 12-44 % Monocytes (%) (Auto) 10 0-12 % Eosinophils (%) (Auto) 2 0-10 % Basophils (%) (Auto) 0 0-10 % Neutrophils # (Auto) 4.6 1.8-7.8 X 10^3 Lymphocytes # (Auto) 1.2 1.0-4.0 X 10^3 Monocytes # (Auto) 0.7 0.0-1.0 X 10^3 Eosinophils # (Auto) 0.2 0.0-0.3 10^3/uL Basophils # (Auto) 0.0 0.0-0.1 10^3/uL Immature Granulocyte # (Auto) 0.0 0.0-0.1 10^3/uL Prothrombin Time 12.1 L 12.2-14.7 SEC INR Comment 0.9 0.8-1.4 Activated Partial Thromboplast Time 29 24-35 SEC Sodium Level 139 135-145 MMOL/L Potassium Level 4.1 3.6-5.0 MMOL/L Chloride Level 102 98-107 MMOL/L Carbon Dioxide Level 26 21-32 MMOL/L Anion Gap 11 5-14 MMOL/L Blood Urea Nitrogen 27 H 7-18 MG/DL Creatinine 1.00 0.60-1.30 MG/DL Estimat Glomerular Filtration Rate 73 BUN/Creatinine Ratio 27 Glucose Level 108 H 70-105 MG/DL Calcium Level 9.6 8.5-10.1 MG/DL Corrected Calcium 8.5-10.1 MG/DL Total Bilirubin 0.3 0.1-1.0 MG/DL Aspartate Amino Transf (AST/SGOT) 19 5-34 U/L Alanine Aminotransferase (ALT/SGPT) 27 0-55 U/L Alkaline Phosphatase 100 40-136 U/L Troponin I 0.30 <0.30 NG/ML Pro-B-Type Natriuretic Peptide 54.5 <75.0 PG/ML Total Protein 7.6 6.4-8.2 GM/DL Albumin 4.9 H 3.2-4.5 GM/DL My Orders Orders - BROWN LEONARDO MD Cbc With Automated Diff (11/16/21 17:17) Chest 1 View Ap/Pa Only (11/16/21 17:17) Ekg Tracing (11/16/21 17:17) Comprehensive Metabolic Panel (11/16/21 17:17) Protime With Inr (11/16/21 17:17) Partial Thromboplastin Time (11/16/21 17:17) Monitor-Rhythm Ecg Trace Only (11/16/21 17:17) Aspirin Chewable Tablet (Baby Aspirin Ch (11/16/21 17:30) Ed Iv/Invasive Line Start (11/16/21 17:17) Troponin I Fs (11/16/21 17:17) Probnp Fs (11/16/21 17:17) Nitroglycerin Ointment (Nitrobid Ointme (11/16/21 17:30) Medications Given in ED Current Medications Medications Dose Ordered Sig/Batool Route Start Time Stop Time Status Last Admin Dose Admin Aspirin 243 mg ONCE ONCE PO 11/16/21 17:30 11/16/21 17:31 DC 11/16/21 17:22 243 MG Nitroglycerin 1 inch ONCE ONCE TOP 11/16/21 17:30 11/16/21 17:31 DC 11/16/21 17:22 1 INCH Vital Signs/I&O 11/16/21 17:10 Temp 36.6 Pulse 71 Resp 16 B/P (MAP) 189/80 (116) O2 Delivery Room Air Progress Progress Note : Progress Note 71-year-old male with above history coming in due to chest pain this been pretty much constant since Tuesday. ABCs were intact and vitals were stable on presentation although he is hypertensive. He was given full dose aspirin as well as Nitropaste for his elevated blood pressure with his chest discomfort. EKG appears similar to prior with no STEMI. Portable chest x-ray ordered and interpreted by me showing no obvious pneumothorax and normal cardiac silhouette. Troponin is negative, and given the constant pain for over a day, 1 - troponin should be sufficient. Most importantly, his discomfort is gone. Unclear of the exact cause, but do recommend he follow back up with his last repairer helper for potential stress test. I believe he is stable for discharge, he was sent home with strict return precautions. Initial ECG Impression Date: Nov 16, 2021 Initial ECG Impression Time: 17:01 Initial ECG Rate: 60 Initial ECG Rhythm: Normal Sinus Initial ECG Intervals Narrow QRS, normal axis, no significant ST changes or T wave abnormalities, overall appears similar to prior EKG Diagnostic Imaging Diagonstic Imaging: Xray Plain Films/CT/US/NM/MRI: chest Comments [facility], [place] NAME: HÉCTOR SMITH [facility] REC#: [id number] PT STATUS: REG ER : 1950 PHYSICIAN: BROWN LEONARDO MD ADMIT DATE: 11/16/21/ER FS Draft Date of Exam:11/16/21 CHEST 1 VIEW AP/PA ONLY INDICATION: Chest pain. EXAMINATION: Portable chest at 05:27 p.m. FINDINGS: Heart size and pulmonary vascularity are normal. Lungs are clear. There are no effusions or pneumothoraces. IMPRESSION: No acute abnormalities in the chest. Dictated on workstation # [id number] Dict: 11/16/21 173 Trans: 11/16/21 1734 [id number] Interpreted by: TANNER ARAIZA MD Electronically signed by: Departure Impression Primary Impression: Chest pain Qualified Codes: R07.9 - Chest pain, unspecified Disposition: HOME, SELF-CARE Condition: Stable Departure-Patient Inst. Referrals: FELISHA CLEARY MD (PCP/Family) Primary Care Physician Patient Instructions: Chest Pain Add. Discharge Instructions: Your work-up today was negative for heart attack, but having chest pain is still concerning. I know you did see Dr. Gillespie already last week, but I would call back and said he went to the ER and see if he wants to do a stress test or something similar. BROWN LEONARDO MD Nov 16, 2021 17:01
[2021-11-16 17:10] VITALS: BP 189/80
[2021-11-16 17:30] LABS: BASOPHILS % (AUTO) 0 % (0-10); EOSINOPHILS % (AUTO) 2 % (0-10); HEMATOCRIT 45 % (40-54); HEMOGLOBIN 14.9 g/dL (13.3-17.7); INR 0.9 (0.8-1.4); LYMPHOCYTES % (AUTO) 18 % (12-44); MEAN CORPUSCULAR HEMOGLOBIN 29 pg (25-34); MEAN CORPUSCULAR VOLUME 86 fL (80-99); MONOCYTES % (AUTO) 10 % (0-12); NEUTROPHILS % (AUTO) 69 % (42-75); PLATELET COUNT 221 10^3/uL (130-400); PROTHROMBIN TIME PATIENT 12.1 SEC (12.2-14.7); WHITE BLOOD COUNT 6.6 10^3/uL (4.3-11.0)
[2021-11-16] MEDS ORDERED: ASPIRIN 81 MG CHEW (CHILDREN'S ASA) PO ONE (17:30)
[2021-11-16] MEDS ORDERED: NITROGLYCERIN 2% OINT 1 GM UNIT DOSE PACKET TOP ONE (17:30)
[2021-11-16 17:31] LABS: LYMPHOCYTES # (AUTO) 1.2 X 10^3 (1.0-4.0); NEUTROPHILS # (AUTO) 4.6 X 10^3 (1.8-7.8)
[2021-11-16 17:32] LABS: EOSINOPHILS # (AUTO) 0.2 10^3/uL (0.0-0.3); MONOCYTES # (AUTO) 0.7 X 10^3 (0.0-1.0)
[2021-11-16 17:33] LABS: MEAN CORPUSCULAR HGB CONC 33 g/dL (32-36)
--- NOTE | 2021-11-16 17:34 | Diagnostic Imaging Report ---
INDICATION: Chest pain. EXAMINATION: Portable chest at 05:27 p.m. FINDINGS: Heart size and pulmonary vascularity are normal. Lungs are clear. There are no effusions or pneumothoraces. IMPRESSION: No acute abnormalities in the chest. Dictated by: Dictated on workstation # [id number]
[2021-11-16 17:46] LABS: ALANINE AMINOTRANSFERASE 27 U/L (0-55); ALKALINE PHOSPHATASE 100 U/L (40-136); BILIRUBIN,TOTAL 0.3 MG/DL (0.1-1.0); BUN/CREATININE RATIO 27; CALCIUM 9.6 MG/DL (8.5-10.1); CARBON DIOXIDE 26 MMOL/L (21-32); CHLORIDE 102 MMOL/L (98-107); GFR ESTIMATED 73; GLUCOSE 108 MG/DL (70-105); POTASSIUM 4.1 MMOL/L (3.6-5.0); SODIUM 139 MMOL/L (135-145); TOTAL PROTEIN 7.6 GM/DL (6.4-8.2)
[2021-11-16 17:47] LABS: ALBUMIN 4.9 GM/DL (3.2-4.5)
== END 2021-11-16 18:00 | disposition home or self-care (01) ==
LOC: EDUNIT# 16:54 → ER FS 16:56
DX: R07.89 Other chest pain (principal); I10 Essential (primary) hypertension; I25.10 Atherosclerotic heart disease of native coronary artery without angina pectoris; I25.2 Old myocardial infarction; E78.00 Pure hypercholesterolemia, unspecified; F41.9 Anxiety disorder, unspecified; Z86.16 Personal history of COVID-19; Z85.118 Personal history of other malignant neoplasm of bronchus and lung; Z95.5 Presence of coronary angioplasty implant and graft; Z90.2 Acquired absence of lung [part of]; Z88.8 Allergy status to other drugs, medicaments and biological substances; Z79.82 Long term (current) use of aspirin; Z79.899 Other long term (current) drug therapy
CPT/HCPCS: 36415; 71045; 80053; 83880; 84484; 85025; 85610; 85730; 93005; 93041

== ENCOUNTER 2021-11-17 17:31 | Emergency (ER) | payer MEDICARE ==
[~2021-11-17] VITALS: Ht 177 cm; Wt 88.0 kg
[2021-11-17 18:14] VITALS: BP 187/89
--- NOTE | 2021-11-17 18:20 | ED Cardiac General ---
History of Present Illness General Chief Complaint: Cardiac/General Problems Stated Complaint: HIGH BP Nursing Triage Note: PT WAS IN HERE LAST PM WITH HIGH BLOOD PRESSURE AND CHEST DISCOMFORT. HE HAS BEEN "WATCHING" HIS BLOOD PRESSURE ALL DAY AND HE STATES IT JUST KEEPS GOING UP THEN HE FEELS "AMPED UP" LIKE HE HAS HAD A PREDNISONE SHOT. HE STATED IT IS NOT ANXIETY. 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 Patient states he has had similar episodes for the past 4 days after exerting himself at work. 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 He states he went home and is rested. He is continue to monitor his blood pressure which is shown an elevation from the 150s to the 180s. Patient developed some chest pain and was evaluated in the emergency department yesterday for the same. He underwent EKG, lab and imaging studies which were nondiagnostic. He was treated his blood pressure which initially improved. He does report increased baseline anxiety state and was at home resting watching TV when he began to feel more anxious and then checked his blood pressure which was once again elevated. Patient's systolic blood pressure at home ran today between 180s to 200s. Patient contacted his daughter doctor who called in a new blood pressure prescription. The patient then decided to come to the emergency department for reevaluation. He denies chest pain palp itations, shortness of breath dizziness headache blurred vision. No other acute symptoms or complaints. Timing/Duration: 4-5 days Severity: mild Location: other Activities at Onset: other Prior CP/Workup: other Modifying Factors: improves with other Allergies and Home Medications Allergies Coded Allergies: prochlorperazine (Unverified Adverse Reaction, Unknown, 08/05/20) Patient Home Medication List Home Medication List Reviewed: Yes ALPRAZolam (Xanax Tablet) 0.25 Mg Tablet, 0.25 MG PO BID PRN for ANXIETY, (Reported) Entered as Reported by: JOE MARROQUIN on 08/05/20 6211 Amlodipine Besylate (Amlodipine Besylate) 5 Mg Tablet, 5 MG PO DAILY, (Reported) Entered as Reported by: JOE AMRROQUIN on 08/05/20 151 Aspirin (Aspirin EC) 81 Mg Tablet.dr, 81 MG PO DAILY Prescribed by: MUSTAPHA FRANK on 08/06/20 1024 Atorvastatin Calcium (Atorvastatin Calcium) 80 Mg Tablet, 80 MG PO HS Prescribed by: MUSTAPHA FRANK on 08/06/20 1024 Baclofen (Baclofen) 10 Mg Tablet, 10 MG PO for PAIN-MODERATE (5-7), (Reported) Entered as Reported by: JOE MARROQUIN on 08/05/20 151 Lisinopril (Lisinopril) 5 Mg Tablet, 5 MG PO DAILY@0900 Prescribed by: MUSTAPHA FRANK on 08/06/20 1024 Nitroglycerin (Nitroglycerin) 0.4 Mg Tab.subl, 0.4 MG SL UD PRN for CHEST PAIN Prescribed by: LISA ZAPATA on 08/05/20 151 Propranolol HCl (Propranolol HCl) 20 Mg Tablet, 20 MG PO, (Reported) Entered as Reported by: JOE MARROQUIN on 08/05/20 151 Ticagrelor (Brilinta) 90 Mg Tablet, 90 MG PO BID Prescribed by: MUSTAPHA FRANK on 08/06/20 1024 Tramadol HCl (Tramadol HCl) 50 Mg Tablet, (Reported) Entered as Reported by: JOE MARROQUIN on 08/05/20 151 Review of Systems Review of Systems Constitutional: see HPI EENTM: See HPI Respiratory: See HPI Cardiovascular: See HPI Gastrointestinal: See HPI Genitourinary: See HPI Musculoskeletal: see HPI Skin: see HPI Psychiatric/Neurological: See HPI Endocrine: See HPI Hematologic/Lymphatic: See HPI All Other Systems Reviewed Negative Unless Noted: Yes Past Exdndri-Gcfycj-Medtbj Hx Patient Social History Tobacco Use?: Yes Use of E-Cig and/or Vaping dev: No Substance use?: No Alcohol Use?: No Pt feels they are or have been: No Immunizations Up To Date Tetanus Booster (TDap): Unknown First/Initial COVID19 Vaccinat: Yes Second COVID19 Vaccination Aaron: Yes Third COVID19 Vaccination Date: Yes Seasonal Allergies Seasonal Allergies: No Past Medical History Surgery/Hospitalization HX: Hx of CT with stent placement 07/2020, Hx of lung cancer with surgical intervention Surgeries: Yes (Nucleoplasty L5-S1 2001, sq cell cancer L face, adenocarcinoma L upper lobe) Lobectomy, Orthopedic Respiratory: No Cardiac: Yes High Cholesterol, Hypertension Neurological: No Genitourinary: No Gastrointestinal: No Musculoskeletal: No Endocrine: No HEENT: No Cancer: No Psychosocial: Yes Anxiety Integumentary: No Blood Disorders: No Physical Exam Vital Signs Vital Signs - First Documented 11/17/21 17:31 Temp 36.3 Pulse 68 Resp 20 B/P (MAP) 187/89 (121) Pulse Ox 98 O2 Delivery Room Air Capillary Refill : Less Than 3 Seconds Height, Weight, BMI Height: '" Weight: lbs. oz. kg; 28.00 BMI Method: General Appearance: No Apparent Distress, WD/WN, Anxious HEENT: PERRL/EOMI, Normal ENT Inspection, Pharynx Normal Neck: Full Range of Motion, Non Tender, Supple Respiratory: Chest Non Tender, Lungs Clear, Normal Breath Sounds Cardiovascular: No Edema Gastrointestinal: Soft Neurologic/Psychiatric: Alert, Oriented x3, No Motor/Sensory Deficits, stock checkerer II- XII Norm as Tested Focused Exam Sepsis Stage: Ruled Out Progress/Results/Core Measures Results/Orders Vital Signs/I&O 11/17/21 17:31 Temp 36.3 Pulse 68 Resp 20 B/P (MAP) 187/89 (121) Pulse Ox 98 O2 Delivery Room Air Blood Pressure Mean: 121 Departure Communication (Admissions) Patient with reassuring physical exam. Lab and medical records from yesterday's visit reviewed reviewed and are reassuring. Patient's blood pressure is more angel vated than I expect at his baseline state. However, is unclear how much his anxiety may be contributing to his current rise in blood pressure, as the patient has checked his blood pressure multiple times daily. Patient does have Xanax at home which she takes twice daily. He is comfortable going home and increasing his exam next to 3 or 4 times daily and taking newly prescribed blood pressure medication as directed from his PCP and following up with his PCP in the office within the next few days. Return precautions reviewed. Patient verbalizes understanding agreement with discharge instructions prior to departure Impression Primary Impression: Encounter for medical screening examination Additional Impressions: Labile hypertension Anxiety tension state Disposition: HOME, SELF-CARE Condition: Stable Departure-Patient Inst. Decision time for Depature: 18:20 Referrals: FELISHA CLEARY MD (PCP/Family) Primary Care Physician Add. Discharge Instructions: You were evaluated in the emergency department for generalized malaise and elevation of blood pressure. The exact cause of your symptoms has not been determined but his anxiety may be contributing to the elevation in blood pressure. Please increase Xanax to 3-4 times daily and follow your PCPs instruction regarding blood pressure management. Follow-up in the office in the next 5 to 7 days for reevaluation. Return to the ED if new or worsening symptoms All discharge instructions reviewed with patient and/or family. Voiced understanding. GIANA GRAVES DO Nov 17, 2021 18:19
== END 2021-11-17 18:23 | disposition home or self-care (01) ==
LOC: EDUNIT# 17:31 → ER FS 17:32
DX: I10 Essential (primary) hypertension (principal); F41.9 Anxiety disorder, unspecified; E78.00 Pure hypercholesterolemia, unspecified; Z72.0 Tobacco use; Z79.82 Long term (current) use of aspirin; Z79.899 Other long term (current) drug therapy
CPT/HCPCS: 99281

== ENCOUNTER 2022-05-18 08:50 | Outpatient (RCR) | payer MEDICARE | END 2022-05-27 | disposition home or self-care (01) | LOC: ONC 08:50 | PROVIDERS: ATTEND Internal Medicine Hematology & Oncology | DX: C61 Malignant neoplasm of prostate (principal) | CPT/HCPCS: 99204 ==

== ENCOUNTER 2022-06-09 08:19 | Outpatient (RCR) | payer MEDICARE | END 2022-06-27 | disposition home or self-care (01) | LOC: ONC 08:19 | PROVIDERS: ATTEND Internal Medicine Hematology & Oncology | DX: C61 Malignant neoplasm of prostate (principal) | CPT/HCPCS: 99213 ==

== ENCOUNTER → 2022-07-06 | Outpatient (CLI) | payer MEDICARE ==
[2022-07-06 14:57] LABS: BASOPHILS % (AUTO) 0 % (0-10); EOSINOPHILS # (AUTO) 0.2 10^3/uL (0.0-0.3); EOSINOPHILS % (AUTO) 2 % (0-10); HEMATOCRIT 42 % (40-54); HEMOGLOBIN 14.7 g/dL (13.3-17.7); LYMPHOCYTES # (AUTO) 1.1 10^3/uL (1.0-4.0); LYMPHOCYTES % (AUTO) 15 % (12-44); MEAN CORPUSCULAR HEMOGLOBIN 29 pg (25-34); MEAN CORPUSCULAR HGB CONC 35 g/dL (32-36); MEAN CORPUSCULAR VOLUME 82 fL (80-99); MONOCYTES # (AUTO) 0.5 10^3/uL (0.0-1.0); MONOCYTES % (AUTO) 6 % (0-12); NEUTROPHILS # (AUTO) 5.6 10^3/uL (1.8-7.8); NEUTROPHILS % (AUTO) 75 % (42-75); PLATELET COUNT 265 10^3/uL (130-400); WHITE BLOOD COUNT 7.4 10^3/uL (4.3-11.0)
[2022-07-06 15:25] LABS: ALANINE AMINOTRANSFERASE 24 U/L (0-55); ALKALINE PHOSPHATASE 133 U/L (40-136); BILIRUBIN,TOTAL 0.4 MG/DL (0.1-1.0); BUN/CREATININE RATIO 23; CALCIUM 9.9 MG/DL (8.5-10.1); CARBON DIOXIDE 23 MMOL/L (21-32); CHLORIDE 106 MMOL/L (98-107); CREATININE SERUM 0.94 MG/DL (0.60-1.30); GFR ESTIMATED 86; GLUCOSE 187 MG/DL (70-105); POTASSIUM 3.7 MMOL/L (3.6-5.0); SODIUM 144 MMOL/L (135-145); TOTAL PROTEIN 7.2 GM/DL (6.4-8.2)
[2022-07-06 15:26] LABS: ALBUMIN 4.8 GM/DL (3.2-4.5)
== END ==
LOC: LAB FS 14:26
PROVIDERS: ATTEND Internal Medicine Hematology & Oncology
DX: C61 Malignant neoplasm of prostate (principal)
CPT/HCPCS: 36415; 80053; 84153; 85025

== ENCOUNTER 2022-09-14 09:17 | Outpatient (RCR) | payer MEDICARE | END 2022-09-27 | disposition home or self-care (01) | LOC: ONC 09:17 | PROVIDERS: ATTEND Internal Medicine Hematology & Oncology | DX: C61 Malignant neoplasm of prostate (principal) | CPT/HCPCS: 99213 ==

== ENCOUNTER → 2022-10-01 | Outpatient (CLI) | payer MEDICARE | LOC: CARD 09:12 | PROVIDERS: ATTEND Nurse Practitioner Family | DX: R06.09 Other forms of dyspnea (principal) | CPT/HCPCS: 93306 ==

== ENCOUNTER → 2023-01-31 | Outpatient (CLI) | payer MEDICARE ==
--- NOTE | 2023-01-31 09:47 | Diagnostic Imaging Report ---
PROCEDURE: CT sinuses without contrast TECHNIQUE: Multiple contiguous axial images were obtained through the sinuses without the use of intravenous contrast. Coronal and sagittal reformations were then performed. Auto Exposure Controls were utilized during the CT exam to meet ALARA standards for radiation dose reduction. INDICATION: Chronic sinusitis COMPARISON: None available FINDINGS: Mucosal thickening within the left anterior and left frontal sinuses with opacification of the left frontoethmoidal drainage pathway. Mild mucosal thickening within the right anterior ethmoid sinus. Right frontal sinus is clear. Minimal mucosal thickening within the bilateral maxillary sinuses. Sphenoid sinuses are clear. Bilateral ostiomeatal units are patent. No air-fluid levels. No mucoperiosteal thickening. No bony erosion. Leftward deviation of the nasal septum. The soft tissues demonstrate no significant abnormality. The visualized intracranial structures are normal. The globes and orbits are normal. IMPRESSION: Mucosal thickening within the left anterior ethmoid and left frontal sinus with opacification of the left frontoethmoidal drainage pathway. Mild mucosal thickening within the right anterior and bilateral maxillary sinuses. Dictated by: Dictated on workstation # [id number]
== END ==
LOC: RAD FS 08:18
PROVIDERS: ATTEND Otolaryngology Otolaryngology/Facial Plastic Surgery
DX: J32.4 Chronic pansinusitis (principal)
CPT/HCPCS: 70486

== ENCOUNTER → 2023-08-30 | Outpatient (CLI) | payer MEDICARE ==
[~2023-08-30] VITALS: Ht 177 cm; Wt 88.0 kg
[~2023-08-30] MED LIST changes: +CATHETER FLUSH 10 ML SYR IVP PRN; +REGADENOSON 0.4 MG/5 ML SYR IV ONE
[2023-08-30 13:10] VITALS: BP 167/93
--- NOTE | 2023-08-30 21:47 | STRESS TEST ---
DATE OF SERVICE: 08/30/2023 RESTING AND POST REGADENOSON TECHNETIUM-99M TETROFOSMIN SPECT CT IMAGING ORDERING PHYSICIAN: Bryanna Nguyen APRN. PRIMARY PHYSICIAN: Dr. Solis. CLINICAL DIAGNOSIS: Coronary artery disease. Baseline images were carried out after injection of 10.31 mCi technetium-99m tetrofosmin. This was followed by 0.4 mg regadenoson and 32 mCi of technetium-99m tetrofosmin for stress imaging. The electrocardiogram showed sinus rhythm at baseline. It did not change significantly with regadenoson infusion. The patient tolerated the procedure well. Review of images at rest and following stress does not indicate any perfusion defects consistent with significant myocardial ischemia or infarction. Gated images show normal global left ventricular systolic function with normal regional wall motion. Left ventricular ejection fraction is calculated to be 81%. CONCLUSIONS: 1. No evidence of significant myocardial ischemia or infarction. 2. Normal to hyperdynamic left ventricular systolic function without regional wall motion abnormality and with a calculated ejection fraction of 81%. 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
== END ==
LOC: CARD 11:35
PROVIDERS: ATTEND Nurse Practitioner Family
DX: I25.10 Atherosclerotic heart disease of native coronary artery without angina pectoris (principal)
CPT/HCPCS: 78452; 93017; A9502